=== PATIENT | female | born 1985 | race Caucasian/White ===

== ENCOUNTER → 2021-12-21 | Outpatient (CLI) | payer OTHER, SELFPAY ==
[2021-12-21 10:03] LABS: Absolute Neutrophil Count 7.5 X10^3/uL (2.0-7.7); Basophil# 0.04 X10^3/uL; Basophil% 0.4 % (0-1); Eosinophil# 0.17 X10^3/uL; Eosinophils% 1.7 % (0-5); Hematocrit 36.6 % (37-47); Hemoglobin 11.4 g/dL (12.0-15.0); Lymphocyte % 18.8 % (19-41); Mean Corp Hgb Conc 31.1 g/dL (32-36); Mean Corpuscular Hgb 26.1 pg (27.0-32.0); Mean Corpuscular Volume 83.9 fL (81-99); Mean Platelet Vol. 10.5 fl (6.2-12.0); Monocyte# 0.44 X10^3/uL; Monocyte% 4.3 % (0-10); NRBC Flagged by Analyzer 0 % (0-5); Neutrophil # 7.53 X10^3/uL (2.7-7.7); Neutrophil % 74.4 % (47-70); Platelet Count 290 K/mm3 (150-450); RBC Distribution Width CV 14.7 % (11.6-14.6); RBC Distribution Width SD 45.2 fl (35.1-43.9); Red Blood Count 4.36 M/mm3 (4.2-5.4); White Blood Count 10.1 K/mm3 (4.4-11.0)
[2021-12-21 10:23] LABS: Glucose Challenge Gest 1H 50g 135 mg/dL (70-140)
[2021-12-21 11:06] LABS: HIV - WCH Non-Reactive (Nonreactive); Hepatitis B Surface Antigen Non-Reactive (Nonreactive); Hepatitis C Antibody Non-Reactive (Nonreactive); Rubella IgG Reactive (Nonreactive); Syphilis Antibodies Non-reactive
== END | disposition home or self-care (01) ==
LOC: PAVLAB 09:07
PROVIDERS: Obstetrics & Gynecology; Referring Provider Obstetrics & Gynecology; Visit Provider Obstetrics & Gynecology
DX: Z34.90 Encounter for supervision of normal pregnancy, unspecified, unspecified trimester (principal)
CPT/HCPCS: 36415; 82950; 85025; 86703; 86762; 86780; 86803; 86850; 86900; 86901; 87340

== ENCOUNTER → 2021-12-21 | Outpatient (CLI) | payer OTHER, SELFPAY ==
[2021-12-24 00:07] LABS: Chlamydia By Nucleic Acid AMP Negative (Negative)
[2021-12-24 08:38] LABS: Gonococcus By Nucleic Acid AMP Negative (Negative)
[2021-12-28 15:33] LABS: HPV APTIMA, High Risk Negative (Negative)
== END | disposition home or self-care (01) ==
LOC: LABSPEC 16:07
PROVIDERS: Referring Provider Obstetrics & Gynecology; Visit Provider Obstetrics & Gynecology
DX: Z34.90 Encounter for supervision of normal pregnancy, unspecified, unspecified trimester (principal)
CPT/HCPCS: 87086; 87088; 87186; 87491; 87591; 87624; 88175; G0145

== ENCOUNTER → 2021-12-30 | Outpatient (CLI) | payer OTHER, SELFPAY ==
[2021-12-30 13:09] LABS: Anion Gap 5 (5-15); BUN 8 mg/dL (7-18); BUN/Creat Ratio 12.3 RATIO (10-20); Calcium,Total 9.1 mg/dL (8.5-10.1); Chloride 106 mmol/L (98-107); Creatinine, Serum 0.65 mg/dL (0.55-1.02); EST Glomerular Filtration Rate 110 mL/min (>60); Est Glom Filt Rate - Afr Amer 133 mL/min (>60); Glucose 101 mg/dL (74-106); Magnesium 1.7 mg/dL (1.6-2.6); Potassium 3.7 mmol/L (3.5-5.1); Sodium Level 138 mmol/L (136-145); Thyroid Stim Hormone (TSH) 1.64 uIU/mL (0.358-3.74)
== END | disposition home or self-care (01) ==
LOC: LAB 11:22
PROVIDERS: PCP Nurse Practitioner Family; Referring Provider Internal Medicine Cardiovascular Disease; Visit Provider Internal Medicine Cardiovascular Disease
DX: I10 Essential (primary) hypertension (principal); R00.0 Tachycardia, unspecified; R01.1 Cardiac murmur, unspecified
CPT/HCPCS: 36415; 80048; 83735; 84443

== ENCOUNTER → 2022-01-12 | Outpatient (CLI) | payer OTHER, SELFPAY | END | disposition home or self-care (01) | PROVIDERS: PCP Nurse Practitioner Family; Referring Provider Internal Medicine Cardiovascular Disease; Visit Provider Internal Medicine Cardiovascular Disease | DX: I10 Essential (primary) hypertension (principal); R00.0 Tachycardia, unspecified; R01.1 Cardiac murmur, unspecified | CPT/HCPCS: 93225; 93226 ==

== ENCOUNTER 2022-01-18 15:08 | Emergency (ER) | payer OTHER, SELFPAY ==
[2022-01-18 15:09] VITALS: BP 215/106; PULSE 93; RESP 16; TEMP 36.6; O2SAT 99; BMI 41.0
--- NOTE | 2022-01-18 15:22 | EKG12_ITS ---
Test Reason : BLOOD PRESSURE Blood Pressure : / mmHG Vent. Rate : 069 BPM Atrial Rate : 069 BPM P-R Int : 160 ms QRS Dur : 078 ms QT Int : 384 ms P-R-T Axes : 027 -16 049 degrees QTc Int : 411 ms Normal sinus rhythm Low voltage QRS Septal infarct , age undetermined Inferior infarct , age undetermined Abnormal ECG Confirmed by ANA ZAMORA, LOUIS ([id number]), website/blog editor ROSIE COOK ([id number]) on 01/19/2022 9:02:53 AM Referred By: JUSTINA Confirmed By:LOUIS PEREZ MD
--- NOTE | 2022-01-18 15:23 | EX.ED.DYSGE1 ---
HPI History of Present Illness Chief Complaint: Hypertension Informant: patient Narrative Narrative: 36-year-old female at 12 weeks gestation presenting to the emergency room with hypertension. Patient has a history of hypertension and recently saw HYDRAULIC AUTO JACK MECHANIC who referred her to cardiology (Dr. Ag) for hypertension and heart murmur. Cardiology assessed her and asked for OB's recommendations for medications. She followed up with her HYDRAULIC AUTO JACK MECHANIC today and was noted that in the office she was 175/123. Due to her insurance she cannot see highway maintainer yet but they are working on this aspect of her care. She has a history of morbid obesity. She notes a sinus headache but that is unchanged. She denies any vision changes. She denies any urinary symptoms no seizures. She notes no change in her chronic lower extremity swelling. She notes that she has nasal congestion due to his allergies [facility] Medical History UTI (urinary tract infection) during Home Medications prenat.vits,edmund,[id number] 1 tab PO DAILY 12/08/21 [History Last Taken Unknown] labetalol 200 mg PO BID #60 tab 01/18/22 [Rx Last Taken Unknown] Allergy/AdvReac Type Severity Reaction Status Date / Time No Known Allergies Allergy Verified 01/18/22 15:11 Family History Mother Cancer possibly ovarian Social History adopted: No household members: spouse number of children: 1 current occupational status: employed current occupation: [employer] pets and animals: Yes (avoid litter box) pets and animals: cat(s) and dog(s) Smoking Status: Never smoker alcohol intake: never substance use type: does not use caffeine: Yes do you feel safe at home: Yes additional social history: Spouse: Jim MERCHANT SHONDA ED Constitutional Constitutional ED: Denies chills, fever(s) or weight loss Eyes Eyes: Denies blurry vision, change in vision or diplopia ENT ENT ED: Reports rhinorrhea; Denies ear pain or sore throat Cardiovascular Cardiovascular: Denies chest pain, orthopnea, palpitations or racing heartbeat Respiratory/Chest Respiratory/Chest: Denies cough, dyspnea or orthopnea Gastrointestinal Gastrointestinal: Denies abdominal pain, diarrhea, nausea or vomiting Genitourinary Genitourinary ED: Denies dysuria, hematuria or urinary frequency Musculoskeletal Musculoskeletal: Denies arthralgias or myalgias Integumentary Denies abscess or rash Neurologic Neurologic: Reports headache(s); Denies weakness Psychiatric Psychiatric: Denies anxiety, depression, suicidal ideation or suicidal thoughts Endocrine Endocrinology: Denies polydipsia, polyphagia or polyuria Allergic/Immunologic Allergic/Immunologic ED: Denies mouth swelling, tongue swelling or urticaria EXAM Physical Exam Const Vital Signs: 01/18/22 15:09 01/18/22 15:19 01/18/22 15:32 Temperature 98 F Temperature Source Temporal Pulse Rate 93 72 Respiratory Rate 16 18 Respiratory Effort Normal Respiratory Pattern Normal Blood Pressure 215/106 H 200/110 H Blood Pressure Mean 142 140 Pulse Ox 99 96 Oxygen Delivery Method Room Air Room Air 01/18/22 15:33 01/18/22 15:55 Temperature Temperature Source Pulse Rate 76 66 Respiratory Rate 18 16 Respiratory Effort Respiratory Pattern Blood Pressure 200/110 H 148/75 H Blood Pressure Mean 140 99 Pulse Ox 98 98 Oxygen Delivery Method Room Air Room Air Positive well nourished, well developed and obese General Appearance ED: well developed Nutritional Appearance: obese HEENT Reports normocephalic, head/scalp atraumatic, TM's clear and moist mucous membranes Negative for trauma Tympanic Membrane ED: Yes TM's clear Eyes PERRL and EOMs intact bilaterally Neck no lymphadenopathy, supple and no JVD Resp normal respiratory effort and clear to auscultation bilaterally Cardio regular rate, regular rhythm and no murmurs GI normal to inspection, nondistended, normoactive bowel sounds and non-tender Palpation: soft Back/Spine no CVA tenderness and normal ROM Extremity Extremity Narrative: Bilateral nonpitting edema of the lower extremity General Extremety ED: Negative for tenderness Neuro oriented x3 and CN's II-XII intact bilaterally Sensorium / Orientation: alert Motor Exam: strength 5/5 throughout Psych mental status grossly normal Mood & Affect: Negative for depressed or tearful Skin no rashes or lesions noted and no wounds MDM MDM MDM Narrative Medical decision making narrative: Basic blood work obtained negative. Patient received a dose of labetalol and nifedipine. Blood pressure has come down 148/75 she does not feel any symptoms of the lower pressure. I spoke with cardiology Dr. Lau who recommends the patient begin labetalol 200 mg twice a day. Patient is comfortable with that plan Lab Data Attestation: I reviewed the patient's lab results. Labs: Laboratory Results - last 24 hr 01/18/22 01/18/22 15:31 15:31 WBC 7.5 RBC 4.70 Hgb 12.5 Hct 38.8 MCV 82.6 MCH 26.6 L MCHC 32.2 RDW Std Deviation 46.1 H RDW Coeff of Nacho 15.2 H Plt Count 301 MPV 10.7 Immature Gran % (Auto) 0.300 Neut % (Auto) 63.5 Lymph % (Auto) 20.9 [place] % (Auto) 13.0 H Eos % (Auto) 2.0 Baso % (Auto) 0.3 Absolute Neuts (auto) 4.7 Absolute Lymphs (auto) 1.56 Nucleated RBC % 0 Sodium 138 Potassium 4.0 Chloride 107 Carbon Dioxide 23.0 Anion Gap 8 BUN 8 Creatinine 0.64 Estim Creat Clear Calc 105.95 Est GFR (MDRD) Af Amer 137 Est GFR (MDRD) Non-Af 113 BUN/Creatinine Ratio 12.6 Glucose 93 Calcium 9.2 Magnesium 2.0 Total Bilirubin 0.20 AST 19 ALT 31 Alkaline Phosphatase 58 Troponin I High Sens < 3 L Total Protein 7.2 Albumin 2.8 L Globulin 4.4 H Albumin/Globulin Ratio 0.6 L EKG Initial EKG: Attestation: I personally reviewed and interpreted this EKG as follows: Comments: Normal sinus rhythm with a ventricular rate of 69 bpm. Discharge Plan Triage Chief Complaint: Hypertension ED Provider: Abhishek Butler Dx/Rx/DC Orders Clinical Impression: Asymptomatic hypertensive urgency Instructions: ED High Blood Pressure Hypertension Prescriptions: New labetalol 200 mg tablet 200 mg PO BID Qty: 60 RF: 0 No Action prenat.vits,edmund,[id number] Tablet 1 tab PO DAILY RF: 0 Primary Care Provider: Lolita Laguna NP Referrals: Radha Hill DO [STAFF PHYSICIAN] - Keep Stephan appointment Rudy Ag MD [STAFF PHYSICIAN] - Keep Stephan appointment Lolita Laguna NP, CALENDER OPERATOR-C [Primary Care Provider] - Disposition Disposition: Home, Self Care
[2022-01-18 15:32] VITALS: BP 200/110; PULSE 72; RESP 18; O2SAT 96
[2022-01-18 15:33] VITALS: BP 200/110; PULSE 76; RESP 18; O2SAT 98
[2022-01-18 15:44] LABS: Absolute Lymphocyte Count 1.56 X10^3/uL (0.83-4.51); Absolute Neutrophil Count 4.7 X10^3/uL (2.0-7.7); Basophil# 0.02 X10^3/uL; Basophil% 0.3 % (0-1); Eosinophil# 0.15 X10^3/uL; Hematocrit 38.8 % (37-47); Hemoglobin 12.5 g/dL (12.0-15.0); Lymphocyte # 1.56 X10^3/ul (0.83-4.51); Lymphocyte % 20.9 % (19-41); Mean Corp Hgb Conc 32.2 g/dL (32-36); Mean Corpuscular Hgb 26.6 pg (27.0-32.0); Mean Corpuscular Volume 82.6 fL (81-99); Mean Platelet Vol. 10.7 fl (6.2-12.0); Monocyte# 0.97 X10^3/uL; NRBC Flagged by Analyzer 0 % (0-5); Neutrophil # 4.74 X10^3/uL (2.7-7.7); Neutrophil % 63.5 % (47-70); Platelet Count 301 K/mm3 (150-450); RBC Distribution Width CV 15.2 % (11.6-14.6); RBC Distribution Width SD 46.1 fl (35.1-43.9); White Blood Count 7.5 K/mm3 (4.4-11.0)
[2022-01-18] MEDS: Labetalol (Prefilled) 20 MG/4 ML 10 MG IV (15:49)
[2022-01-18] MEDS: NIFEdipine 10 MG Capsule 20 MG PO (15:51)
[2022-01-18 15:55] VITALS: BP 148/75; PULSE 66; RESP 16; O2SAT 98
[2022-01-18 16:02] LABS: ALB/GLOB Ratio 0.6 RATIO (0.9-2.4); AST(SGOT) 19 U/L (15-37); Alanine Aminotransfer ALT/SGPT 31 U/L (13-56); Albumin, Serum 2.8 g/dL (3.2-5.0); Alkaline Phosphatase 58 U/L (45-117); Anion Gap 8 (5-15); BUN 8 mg/dL (7-18); BUN/Creat Ratio 12.6 RATIO (10-20); Calcium,Total 9.2 mg/dL (8.5-10.1); Chloride 107 mmol/L (98-107); Creatinine, Serum 0.64 mg/dL (0.55-1.02); EST Glomerular Filtration Rate 113 mL/min (>60); Est Glom Filt Rate - Afr Amer 137 mL/min (>60); Estimated Creatinine Clearance 105.95 ml/min; Globulin 4.4 g/dL (2.2-4.2); Glucose 93 mg/dL (74-106); Protein, Total 7.2 g/dL (6.4-8.2); Sodium Level 138 mmol/L (136-145); Troponin-I HS < 3 pg/mL (3.0-54.0)
[2022-01-18 16:27] LABS: Mucous, Urine 0 SEEN /hpf (<or=2+)
[2022-01-18 16:33] LABS: Color, Urine Yellow (Yellow); Glucose, Dipstick Normal (Normal); Ketone-Dipstick Negative (Negative); Leukocyte Esterase-Dipstick 500 /ul (Negative); Nitrite-Dipstick Positive (Negative); Occult Blood-Urine 250 /ul (Negative); Protein-Dipstick 15 mg/dl (Negative); Urine Bilirubin Dipstick Negative (Negative); Urine Clarity Sl. Cloudy (Clear); Urine Urobilinogen Normal (Normal); Urine pH 6.5 (5.0 - 8.0)
[2022-01-18 16:35] VITALS: BP 150/79; PULSE 82; RESP 16; O2SAT 98
[2022-01-18 16:45] LABS: Bacteria 3+ /hpf (None Seen); Red Blood Cells-Urine 10-25 SEEN /hpf (0-5); Squamous Epithelial Cells - UA 5-10 SEEN /hpf (5-10)
[2022-01-18 16:47] LABS: White Blood Cells 25-50 SEEN /hpf (0-5)
== END 2022-01-18 16:35 | disposition home or self-care (01) ==
PROVIDERS: Emergency Provider Emergency Medicine; PCP Nurse Practitioner Family; Visit Provider Emergency Medicine
DX: I16.0 Hypertensive urgency (principal); O99.211 Obesity complicating pregnancy, first trimester; O10.911 Unspecified pre-existing hypertension complicating pregnancy, first trimester; Z3A.12 12 weeks gestation of pregnancy
CPT/HCPCS: 80053; 81001; 83735; 84484; 85025; 93005; 96374; 99284; A4216

== ENCOUNTER 2022-01-20 06:41 | Day surgery (SDC) | payer OTHER, SELFPAY ==
[2022-01-20] VITALS (12 sets, daily range): BP systolic 118–148; BP diastolic 54–80; PULSE 51–76; RESP 16–20; TEMP 36.2–36.8; O2SAT 97–100; BMI 48.0
--- NOTE | 2022-01-20 | FET_PTH ---
PATIENT: CRUZ ORONA [place] [facility] [id number] AGE/SX: 36/F ROOM: RE01/20/[address]: Dr. Jerrica Coronel MD : 1985 BED: DIS: 01/20/2022 SPEC #: [id number] RECD: 01/20/22 13:09 STATUS: BOB VICKIE #: [id number] XIMENA: 01/20/22 00:[address]: Jerrica Coronel DEPT: SURGICAL PATHOLOGY RECD BY: Ana Lilia Miranda ENTERED: 01/20/22 13:09 SP TYPE: FETUS OTHR DR: HARSH Ashby Tissues: Fetus, NOS Procedures: Surgery Specimen Level HEADER OPERATION: None PRE-OP DIAGNOSIS: Miscarriage TISSUE SUBMITTED: Fetus (about 13 weeks) MICROSCOPIC DIAGNOSIS Fetus vaginally passed at home (approximately 13 weeks): Male fetus with no anatomic or histologic abnormalities. AM:gus 01/21/2022 MICROSCOPIC DESCRIPTION Slides are reviewed. GROSS DESCRIPTION Received in fixative is one container labeled with the patient's name and designated fetus. The specimen consists of a male fetus weighing 29.8 gm. The rump to head measures 8 cm. The head to heel measures 11.2 cm. The attached umbilical cord measures 7 x 0.3 cm. The head circumference is 7.2 cm. All four extremities are normal in appearance. The skin show sloughing. The abdominal and thoracic organs appear to be normally situated. Cable Swager sections are submitted as follows: 1??lung and heart, 2 - liver and spleen, 3 - kidneys and bowel, 4 - brain. / AM:gus 01/20/2022 TC:5 CPT: 88750
--- NOTE | 2022-01-20 07:05 | US_ITS ---
STUDY: FIRST TRIMESTER OBSTETRICAL ULTRASOUND REASON FOR EXAM: Female, 36 years old Miscarriage at 12 weeks - patient passed fetus last night TECHNIQUE: Transabdominal scanning only. TECHNICAL QUALITY: Adequate. PRIOR ULTRASOUND: None. FINDINGS: The uterus is enlarged measuring 17.0 x 9.0 x 8.0 cm in diameter. There is no demonstrated uterine fibroid. Endometrial stripe is thickened measuring up to 3 cm in thickness. The endometrial stripe is inhomogeneous, consistent with clot. No intrauterine gestational sac is seen. A few small foci of Doppler flow are seen within the endometrium. Neither ovary is visualized. No adnexal mass or free pelvic fluid identified. There is no fluid in the cul de sac. US/Init OB < 14Wks US IMPRESSION: No intrauterine gestational sac is present, consistent with the clinical history of spontaneous . Thickened heterogeneous endometrium; a few small foci of Doppler flow noted within the thickened endometrium, suggesting minimal retained products of conception. Electronically Signed: Ventura Peña MD at 7:53 EDT ,
--- NOTE | 2022-01-20 07:08 | EDS_ITS ---
HPI HPI - Female History of Present Illness Chief Complaint: Vag Bld, Preg Informant: patient Narrative Narrative: This patient is G4 or G5, P1 at about 13 weeks gestation. She was seen yesterday in the office. She states she had an ultrasound that showed an abruption of the placenta. This morning she had passage of a fair amount of blood with a lot of tissue. She states the bleeding has significantly decreased. She still having intermittent cramping. She is not lightheaded or dizzy. Her 1 delivery was vaginal. She is not on any anticoagulation. She does take and labetalol for chronic high blood pressure. I looked back on her chart and she has blood type a positive from earlier this month. Nothing makes symptoms better or worse. She was feeling fine prior to this. PFSH PFS Medical History UTI (urinary tract infection) during Home Medications prenat.vits,edmund,[id number] 1 tab PO DAILY 12/08/21 [History Last Taken Unknown] labetalol 200 mg PO BID #60 tab 01/18/22 [Rx Last Taken Unknown] Allergy/AdvReac Type Severity Reaction Status Date / Time No Known Allergies Allergy Verified 01/20/22 06:42 Family History Mother Cancer possibly ovarian Social History adopted: No household members: spouse number of children: 1 current occupational status: employed current occupation: [employer] pets and animals: Yes (avoid litter box) pets and animals: cat(s) and dog(s) Smoking Status: Never smoker alcohol intake: never substance use type: does not use caffeine: Yes do you feel safe at home: Yes additional social history: Spouse: Jim MERCHANT ED Constitutional Constitutional ED: Denies chills or fever(s) ENT ENT ED: Denies rhinorrhea Cardiovascular Cardiovascular: Denies chest pain Respiratory/Chest Respiratory/Chest: Denies cough or dyspnea Gastrointestinal Gastrointestinal: Denies diarrhea, nausea or vomiting Genitourinary Genitourinary ED: Reports other Details: See history of present illness. Musculoskeletal Musculoskeletal: Denies myalgias Integumentary Denies rash Neurologic Neurologic: Denies headache(s) Psychiatric Psychiatric: Denies depression Endocrine Endocrinology: Denies polydipsia or polyuria Hematologic/Lymphatic Hematologic/Lymphatic: Denies easy bleeding or easy bruising Allergic/Immunologic Allergic/Immunologic ED: Denies urticaria EXAM Physical Exam Const Vital Signs: 01/20/22 06:43 01/20/22 09:55 01/20/22 10:21 Temperature 97.5 F L Temperature Source Temporal Pulse Rate 68 59 L Respiratory Rate 20 H 16 Blood Pressure 139/67 H 122/67 H 148/75 H Blood Pressure Mean 91 85 99 Pulse Ox 98 98 Oxygen Delivery Method Room Air Room Air Positive well nourished General Appearance ED: Negative for pallor HEENT Reports moist mucous membranes Negative for trauma Eyes General Eye ED: Negative for pale conjunctiva Chest Wall inspection of chest normal Resp normal respiratory effort and clear to auscultation bilaterally Cardio regular rate and regular rhythm Rate: other Other Details: Heart rate is only about 60-65. GI normal to inspection, nondistended, normoactive bowel sounds, soft to palpation and non-tender no CVA tenderness Back/Spine no CVA tenderness Neuro Sensorium / Orientation: alert Psych mental status grossly normal Skin no rashes or lesions noted Skin Narrative: No diaphoresis. General Skin Exam: Negative for pallor MDM MDM MDM Narrative Medical decision making narrative: Patient and not told me but nursing staff did. Patient actually brought in a very small fetus that passed. This was clearly fetus by structure. Patient's labs are overall unremarkable. We did order ultrasound. We are having trouble getting these images. At 10:00 we again asked to see if we can get this read. It ends up that the images had been read at 753 but we did not have access to them. They faxed over the results at the same time we had them appear on the computer. This does show some retained products. Patient had another episode of bleeding here. But her blood pressure is good at 120s. I discussed case with Dr. Coronel. Plan wi ll be go to the OR for D&C. Lab Data Attestation: I reviewed the patient's lab results. Labs: Laboratory Results - last 24 hr 01/20/22 01/20/22 06:50 06:50 WBC 12.0 H RBC 4.58 Hgb 12.1 Hct 38.1 MCV 83.2 MCH 26.4 L MCHC 31.8 L RDW Std Deviation 46.4 H RDW Coeff of Nacho 15.3 H Plt Count 319 MPV 10.6 Immature Gran % (Auto) 0.300 Neut % (Auto) 72.1 H Lymph % (Auto) 18.8 L [place] % (Auto) 5.8 Eos % (Auto) 2.7 Baso % (Auto) 0.3 Absolute Neuts (auto) 8.7 H Absolute Lymphs (auto) 2.26 Nucleated RBC % 0 Sodium 138 Potassium 3.9 Chloride 107 Carbon Dioxide 22.0 Anion Gap 9 BUN 10 Creatinine 0.62 Estim Creat Clear Calc 109.36 Est GFR (MDRD) Af Amer 140 Est GFR (MDRD) Non-Af 115 BUN/Creatinine Ratio 16.0 Glucose 107 H Calcium 9.0 Radiography Diagnostic Testing: Clinical Impression(s) from Imaging Studies Obstetrics Ultrasound 01/20/22 07:05 IMPRESSION: No intrauterine gestational sac is present, consistent with the clinical history of spontaneous . Thickened heterogeneous endometrium; a few small foci of Doppler flow noted within the thickened endometrium, suggesting minimal retained products of conception. Electronically Signed: Ventura Peña MD at 7:53 EDT , Discharge Plan Triage Chief Complaint: Vag Bld, Preg ED Provider: Warren Lowe Dx/Rx/DC Orders Clinical Impression: Incomplete miscarriage, Vaginal bleeding Prescriptions: No Action prenat.vits,edmund,[id number] Tablet 1 tab PO DAILY RF: 0 labetalol 200 mg tablet 200 mg PO BID Qty: 60 RF: 0 Primary Care Provider: Lolita Laguna NP Referrals: Lolita Laguna BIKE MECHANIC, BIKE MECHANIC-C [Primary Care Provider] - Disposition Disposition: Acute Care Hospital [facility]
[2022-01-20 07:15] LABS: Absolute Lymphocyte Count 2.26 X10^3/uL (0.83-4.51); Absolute Neutrophil Count 8.7 X10^3/uL (2.0-7.7); Basophil# 0.03 X10^3/uL; Basophil% 0.3 % (0-1); Eosinophil# 0.32 X10^3/uL; Eosinophils% 2.7 % (0-5); Hematocrit 38.1 % (37-47); Hemoglobin 12.1 g/dL (12.0-15.0); Lymphocyte # 2.26 X10^3/ul (0.83-4.51); Lymphocyte % 18.8 % (19-41); Mean Corp Hgb Conc 31.8 g/dL (32-36); Mean Corpuscular Hgb 26.4 pg (27.0-32.0); Mean Corpuscular Volume 83.2 fL (81-99); Mean Platelet Vol. 10.6 fl (6.2-12.0); Monocyte# 0.69 X10^3/uL; Monocyte% 5.8 % (0-10); NRBC Flagged by Analyzer 0 % (0-5); Neutrophil # 8.65 X10^3/uL (2.7-7.7); Neutrophil % 72.1 % (47-70); Platelet Count 319 K/mm3 (150-450); RBC Distribution Width CV 15.3 % (11.6-14.6); RBC Distribution Width SD 46.4 fl (35.1-43.9); Red Blood Count 4.58 M/mm3 (4.2-5.4)
[2022-01-20 07:28] LABS: Anion Gap 9 (5-15); BUN 10 mg/dL (7-18); Chloride 107 mmol/L (98-107); Creatinine, Serum 0.62 mg/dL (0.55-1.02); EST Glomerular Filtration Rate 115 mL/min (>60); Est Glom Filt Rate - Afr Amer 140 mL/min (>60); Estimated Creatinine Clearance 109.36 ml/min; Glucose 107 mg/dL (74-106); Potassium 3.9 mmol/L (3.5-5.1); Sodium Level 138 mmol/L (136-145)
--- NOTE | 2022-01-20 09:42 | ED.RN ---
PT UP TO BATHROOM. PASSING LARGE CLOTS LEAKING TO FLOOR. BED SATURATED WITH BLOOD.
[2022-01-20] MEDS: 0.9% Normal Saline 1,000 ML 15 ML IV (12:04)
[2022-01-20] MEDS: Lidocaine 1% (20 ml mdv) 20 ML Vial (12:28)
--- NOTE | 2022-01-20 12:54 | PCM.HP.STD ---
HPI - General HPI Narrative CRUZ ORONA, is a 36 F who presentswith acute vagianl bleeding and passed tissue at home this morning, and upon ultrasound evaluation has retained placental tissue suspected on ultrasound, still bleeding. [facility] Medical History UTI (urinary tract infection) during Home Medications prenat.vits,edmund,[id number] 1 tab PO DAILY 12/08/21 [History Last Taken 01/19/22] labetalol 200 mg PO BID #60 tab 01/18/22 [Rx Last Taken 01/19/22] Allergy/AdvReac Type Severity Reaction Status Date / Time No Known Allergies Allergy Verified 01/20/22 12:01 Family History Mother Cancer possibly ovarian Social History adopted: No household members: spouse number of children: 1 current occupational status: employed current occupation: [employer] pets and animals: Yes (avoid litter box) pets and animals: cat(s) and dog(s) Smoking Status: Never smoker alcohol intake: never substance use type: does not use caffeine: Yes do you feel safe at home: Yes additional social history: Spouse: Jim MECRHANT Review of Systems ROS Unobtainable: due to mental status and other Constitutional Constitutional: Reports systems reviewed and no addt'l complaints, except as documented; Denies as per HPI, change in weight, fatigue, fever(s), malaise, weakness or other Eyes Eyes: Reports systems reviewed and no addt'l complaints, except as documented; Denies as per HPI, change in vision or other ENT HEENT: Reports as per HPI and dizziness; Denies dry mouth, headache(s), loss taste/smell, nasal congestion, nasal discharge, neck pain, sore throat or other Respiratory/Chest Respiratory/Chest: Reports systems reviewed and no addt'l complaints, except as documented Gastrointestinal Gastrointestinal: Reports systems reviewed and no addt'l complaints, except as documented and nausea; Denies vomiting Musculoskeletal Musculoskeletal: Reports systems reviewed and no addt'l complaints, except as documented; Denies back pain or joint pain Neurologic Neurologic: Reports systems reviewed and no addt'l complaints, except as documented Psychiatric Psychiatric: Reports systems reviewed and no addt'l complaints, except as documented Endocrine Endocrinology: Reports systems reviewed and no addt'l complaints, except as documented Hematologic/Lymphatic Hematologic/Lymphatic: Reports systems reviewed and no addt'l complaints, except as documented Vital Signs Vital Signs Vital Signs: 01/20/22 06:43 01/20/22 09:55 01/20/22 10:21 Temperature 97.5 F L Temperature Source Temporal Pulse Rate 68 59 L Respiratory Rate 20 H 16 Respiratory Pattern Blood Pressure 139/67 H 122/67 H 148/75 H Blood Pressure Mean 91 85 99 Blood Pressure Source Blood Pressure Position Blood Pressure Location Pulse Ox 98 98 Oxygen Delivery Method Room Air Room Air 01/20/22 11:37 01/20/22 11:46 01/20/22 11:55 Temperature 98.0 F 98 F 98.2 F Temperature Source Oral Oral Temporal Pulse Rate 66 66 57 L Respiratory Rate 17 17 16 Respiratory Pattern Normal Blood Pressure 144/76 H 144/76 H 143/72 H Blood Pressure Mean 98 98 95 Blood Pressure Source Monitor Monitor Blood Pressure Position Semi-Fowlers Semi-Fowlers Blood Pressure Location Right Arm Right Forearm Pulse Ox 98 98 99 Oxygen Delivery Method Room Air Room Air Room Air Weight Weight: 279 lb 15.793 oz Body Mass Index (BMI) 48.0 Physical Exam Const alert, oriented x3 and no apparent distress HEENT normocephalic Head and Scalp: atraumatic Eyes EOMs intact bilaterally and conjunctivae normal Neck full ROM, no lymphadenopathy, supple and thyroid normal General: trachea midline Lymph Lymphatic: no lymphadenopathy noted Resp normal respiratory effort, no retractions, no use of accessory muscles and clear to auscultation bilaterally Cardio regular rhythm GI normal to inspection, nondistended, normoactive bowel sounds, soft to palpation, non-distended and no masses Inspection: Negative for abdominal distention Back/Spine no CVA tenderness Extremity normal to inspection Skin no rashes or lesions noted Neuro moves all extremities and deep tendon reflexes 2+ bilaterally Motor Exam: clonus absent Psych mental status grossly normal Results Lab / Micro Data Result Diagrams: 01/20/22 06:50 01/20/22 06:50 Labs: Laboratory Results - last 24 hr 01/20/22 06:50: WBC 12.0 H, RBC 4.58, Hgb 12.1, Hct 38.1, MCV 83.2, MCH 26.4 L, MCHC 31.8 L, RDW Std Deviation 46.4 H, RDW Coeff of Nacho 15.3 H, Plt Count 319, MPV 10.6, Immature Gran % (Auto) 0.300, Neut % (Auto) 72.1 H, Lymph % (Auto) 18.8 L, [place] % (Auto) 5.8, Eos % (Auto) 2.7, Baso % (Auto) 0.3, Absolute Neuts (auto) 8.7 H, Absolute Lymphs (auto) 2.26, Nucleated RBC % 0 01/20/22 06:50: Sodium 138, Potassium 3.9, Chloride 107, Carbon Dioxide 22.0, Anion Gap 9, BUN 10, Creatinine 0.62, Estim Creat Clear Calc 109.36, Est GFR (MDRD) Af Amer 140, Est GFR (MDRD) Non-Af 115, BUN/Creatinine Ratio 16.0, Glucose 107 H, Calcium 9.0 Radiology Impression Obstetrics Ultrasound 01/20/22 07:05 IMPRESSION: No intrauterine gestational sac is present, consistent with the clinical history of spontaneous . Thickened heterogeneous endometrium; a few small foci of Doppler flow noted within the thickened endometrium, suggesting minimal retained products of conception. Electronically Signed: Ventura Peña MD at 7:53 EDT , Assessment & Plan Assessment/Plan (1) Chronic hypertension: (2) Incomplete miscarriage: PLAN: proceed with suction d and c After discussing the patient's diagnosis and treatment plan options, patient wishes to proceed with surgical management. I have discussed with the patient the risks, benefits, and alternatives of the procedure which include but are not limited to risks of anesthesia, bleeding, infection, possible damage to bowel, bladder, or surrounding vasculature which could lead to additional surgery to evaluate any complications. Patient agrees to procedure and wishes to proceed. ACOG/uptodate references given for additional information regarding procedure.
--- NOTE | 2022-01-20 12:55 | PCM.OPRPT ---
Problems Associated Problem List Diagnoses (1) Incomplete miscarriage: (2) Vaginal bleeding: (3) Chronic hypertension: (4) : Report of Operation Date of Procedure: 01/20/22 Pre-Operative Diagnosis: see problem list Post-Operative Diagnosis: same Surgery/Procedure Performed:: Suction dilation and curettage Description of Surgical Findings:: tissue passed, retained placental tissue suspected no FHT seen no pole Surgeon: Jerrica Coronel gear lapping machine operator: None Type of Anesthesia: Local MAC Special Medications: cytotec Specimen's removed: POC Drains: none Estimated Blood Loss (mL): 100 Fluids Replaced: crystalloid Description of Procedure: Patient was taken to the operating room and placed under MAC local anesthesia. She was prepped and draped in the normal sterile fashion the dorsal lithotomy position. Bladder was drained of clear urine and anterior lip of the cervix was grasped and the uterus sounded to 12cm. Cervix was progressively dilated to allow passage of a 12mm suction curette. Progressive passes were made removing the retained products of conception without complication. Sharp curettage confirmed complete removal of the retained products. All instruments were removed from the vagina and excellent hemostasis was noted and the patient was taken to recovery in stable condition. Grafts/Implants Used: none Complications none Admit VTE Documentation VTE Present on Admission: No VTE Mechan Device Prophylaxis: SCD's Procedures Urinary/Genital [id number]: 03644 Trmt of incomplete Ab, any TM
--- NOTE | 2022-01-20 13:12 | DCINST_ITS ---
Discharge Instructions Procedure D&C Diet Discharge Diet: No restrictions Activity Discharge Activity: Return to Normal Activity, May Shower and May Take a Tub Bath (after 1 week) May resume sexual activity in: 1-2 weeks Weight Bearing Status: Weight bearing as tolerated Lifting Restrictions: none Dressing / Incision Call your doctor if you observe: Fever of 101 or Higher, Using more than 1 pad per hour, Shortness of breath and Uncontrolled pain Follow Up Care Please Follow Up With: Jerrica Coronel MD When: Call [phone] to schedule appointment. Test Results: Test results from this visit will be discussed in further detail at your follow-up appointment, if applicable. Discharge Plan Admission Attending Provider: Jerrica Coronel Primary Care Provider: Lolita Laguna NP Discharge Orders/Prescriptions Prescriptions: No Action prenat.vits,edmund,[id number] Tablet 1 tab PO DAILY RF: 0 labetalol 200 mg tablet 200 mg PO BID Qty: 60 RF: 0 Referrals / Follow Up: Lolita Laguna NP, [employer]APH[employer] SOAPING MACHINE OPERATOR-C [Primary Care Provider] - Disposition Disposition (needs filled in before D/C Order can be placed): Home, Self Care
[2022-01-20] MEDS: Lubricating Jelly 60 GM Tube 30 GM (13:13)
[2022-01-20] MEDS: miSOPROStol 200 MCG Tablet ×2 (13:19)
--- NOTE | 2022-01-20 13:40 | POC_PTH ---
PATIENT: CRUZ ORONA LOC: [facility] [place][id number] AGE/SX: 36/F ROOM: RE01/20/[address]: Dr. Jerrica Coronel MD : [id number] BED: DIS: 01/20/2022 SPEC #: [id number] RECD: 01/20/22 14:36 STATUS: BOB JOHNSTON #: [id number] XIMENA: 01/20/22 13:[address]: Jerrica Coronel DEPT: SURGICAL PATHOLOGY RECD BY: Ana Lilia Miranda ENTERED: 01/21/22 08:41 SP TYPE: PROD CONC OTHR DR: HARSH Ashby Tissues: Product of conception, NOS Procedures: Surgery Specimen Level IV HEADER OPERATION: Suction dilation and curettage PRE-OP DIAGNOSIS: Incomplete spontaneous TISSUE SUBMITTED: Products of conception MICROSCOPIC DIAGNOSIS Endometrium, curettage: Rare chorionic villi, decidualized stroma and trophoblastic cells consistent with products of conception. AM:gus 01/25/2022 COMMENT Case has been reviewed in consultation with Dr. Bear who concurs with the above diagnosis. IDC:DAVID MICROSCOPIC DESCRIPTION Slides are reviewed. GROSS DESCRIPTION Received in fixative is one container labeled with the patient's name and designated products of conception. The specimen consists of multiple irregular and hemorrhagic fragments of dark terry soft tissue that in aggregate measure 10 x 11 x 1 cm. parts are not grossly recognized. Business Technology Architect portions are submitted in three cassettes. / AM:gus 01/21/2022 More tissue is submitted in five more cassettes, 4-8. / SJ:gus 01/24/2022 TC:5 CPT: 40699
== END 2022-01-20 15:19 | disposition home or self-care (01) ==
LOC: ED 10:59 → SDC 11:37
PROVIDERS: Emergency Provider Emergency Medicine; PCP Nurse Practitioner Family; Visit Provider Obstetrics & Gynecology
PROC: (CPT 59812; principal; 2022-01-20 13:25)
DX: O03.4 Incomplete spontaneous abortion without complication (principal); O09.521 Supervision of elderly multigravida, first trimester; O10.911 Unspecified pre-existing hypertension complicating pregnancy, first trimester; I10 Essential (primary) hypertension
CPT/HCPCS: 59812; 01965; 76801; 80048; 85025; 86850; 86900; 86901; 88305; 88309; 99283; J7040; A4216; J2405

== ENCOUNTER → 2022-01-27 | Outpatient (CLI) | payer OTHER, SELFPAY ==
--- NOTE | 2022-01-27 15:06 | ECHOD_ITS ---
Reason For Study: MURMUR Procedure This was a 2D Doppler, Color Flow transthoracic echocardiogram. The study was technically difficult. Contrast injection was performed. Exam performed in department. Left Ventricle Normal LV size. Left ventricular systolic function is normal. The estimated ejection fraction is 65 %. There is evidence of diastolic dysfunction. No regional wall motion abnormalities noted. Right Ventricle Normal RV size. Normal systolic function. Atria The left atrium is mildly enlarged. Normal right atrium. No doppler evidence for ASD. Mitral Valve There is no mitral annular calcification. Normal mitral valve. Mild (1+) mitral valve insufficiency. Tricuspid Valve Normal tricuspid valve. Mild tricuspid valve insufficiency. Right ventricular systolic pressure estimated to be 36 mmHg. Aortic Valve The aortic valve is not well visualized. Trivial aortic valve insufficiency. Pulmonic Valve The pulmonic valve is not well visualized. Great Vessels Normal sized aortic root. Pericardium/Pleural No pericardial effusion. Medication 22 gauge I.V. with prn adaptor inserted into left arm. Diluted definity 2ml given slow IV push to enhance endocardial definition. Performed a rapid injection of agitated mix of 9 cc saline and 1cc air to assess for atrial septal defect. MMode/2D Measurements & Calculations LVIDd: 5.2 cm IVSd: 1.2 cm Ao root diam: 2.9 cm LVIDs: 3.3 cm LVPWd: 1.4 cm RVDd: 3.4 cm FS: 37.9 % LAV(MOD-sp4): 117.6 ml LVAd ap4: 42.3 cm2 SV(MOD-sp4): 115.7 ml LVLd ap4: 9.0 cm EDV(MOD-sp4): 163.5 ml EDV(sp4-el): 168.0 ml LVAs ap4: 21.8 cm2 LVLs ap4: 7.7 cm ESV(MOD-sp4): 47.9 ml ESV(sp4-el): 52.9 ml EF(MOD-sp4): 70.7 % EF(sp4-el): 68.5 % SV(sp4-el): 115.1 ml LA A4 area: 30.6 cm2 LA dimension(2D): 4.4 cm RA A4 area: 16.9 cm2 Doppler Measurements & Calculations MV E max hernandez: 145.6 cm/sec Lat Peak E' Hernandez: 12.4 cm/sec Med Peak E' Hernandez: 8.3 cm/sec MV A max hernandez: 118.3 cm/sec E/E' lat: 11.8 E/E' med: 17.6 MV E/A: 1.2 Ao V2 max: 174.2 cm/sec LV V1 max: 134.1 cm/sec PA V2 max: 133.9 cm/sec Ao max P.1 mmHg LV V1 max P.2 mmHg TR max hernandez: 287.6 cm/sec TR max P.1 mmHg ECHO/Echo Complete W/ Contrast Interpretation Summary The study was technically difficult. Contrast injection was performed. Left ventricular systolic function is normal. The estimated ejection fraction is 65 %. The left atrium is mildly enlarged. Mild (1+) mitral valve insufficiency. Mild tricuspid valve insufficiency. Trivial aortic valve insufficiency. Right ventricular systolic pressure estimated to be 36 mmHg. There is evidence of diastolic dysfunction. Ordering Physician: Rudy Ag Referring Physician: Rudy Ag Performed By: Lucila Damon RCS
== END | disposition home or self-care (01) ==
LOC: CVS 15:05
PROVIDERS: PCP Nurse Practitioner Family; Referring Provider Internal Medicine Cardiovascular Disease; Visit Provider Internal Medicine Cardiovascular Disease
DX: I10 Essential (primary) hypertension (principal); I34.0 Nonrheumatic mitral (valve) insufficiency
CPT/HCPCS: 93306; Q9957; A4216; C8929

== ENCOUNTER 2022-02-07 14:12 | Emergency (ER) | payer OTHER, SELFPAY ==
[2022-02-07] VITALS (11 sets, daily range): BP systolic 155–195; BP diastolic 64–95; PULSE 49–74; RESP 15–20; TEMP 36.3–36.8; O2SAT 97–100; BMI 48.0
--- NOTE | 2022-02-07 14:26 | EDS_ITS ---
HPI History of Present Illness Chief Complaint: Chest Pain Narrative Narrative: 36-year-old female here with a chief complaint of chest pain. Past medical history UTI. The patient states she developed acute midsternal chest pain approximate 1-1/2 hours prior to arrival. The pain is not radiating. Is worse when lying flat. Denies history of CAD, heart attacks, denies family history of heart attacks. She states the symptoms are constant, not exertional. Not pleuritic. Denies any recent surgery, chemotherapy, estrogen use, unilateral leg swelling, hemoptysis. Denies any connective tissue disorder such as Flower- Danlos or Marfan syndrome. Denies any numbness tingling or loss of sensation. Denies any recent illness, fever cough. Old chart reviewed: Echocardiogram from 01/27/2022 shows ejection fraction of 65% Last ED visit on 01/20/2022 for hypertension. Troponin level was negative at that time [facility] Medical History (Updated 02/07/22 @ 15:20 by Josephine Soni) HTN (hypertension) UTI (urinary tract infection) during Home Medications labetalol 200 mg tablet 200 mg PO BID #60 tabs 01/18/22 [Rx Last Taken 01/19/22] Allergy/AdvReac Type Severity Reaction Status Date / Time No Known Allergies Allergy Verified 01/20/22 12:01 Family History Mother Cancer possibly ovarian Social History adopted: No household members: spouse number of children: 1 current occupational status: employed current occupation: [employer] pets and animals: Yes (avoid litter box) pets and animals: cat(s) and dog(s) Smoking Status: Never smoker alcohol intake: never substance use type: does not use caffeine: Yes do you feel safe at home: Yes additional social history: Spouse: Jim MERCHANT ED Eyes Eyes: Denies other visual disturbances ENT ENT ED: Denies ear pain Cardiovascular Cardiovascular: Reports chest pain Respiratory/Chest Respiratory/Chest: Reports dyspnea on exertion; Denies dyspnea Gastrointestinal Gastrointestinal: Denies abdominal pain Genitourinary Genitourinary ED: Denies dysuria Musculoskeletal Musculoskeletal: Reports other Details: Negative for new leg swelling ; Denies joint pain Integumentary Denies rash Neurologic Neurologic: Denies dizziness, focal weakness, numbness, syncope or weakness Psychiatric Psychiatric: Denies homicidal ideation or suicidal ideation EXAM Physical Exam Const Vital Signs: 02/07/22 14:12 02/07/22 14:54 02/07/22 15:21 Temperature 97.6 F L Temperature Source Temporal Pulse Rate 56 L 70 65 Respiratory Rate 16 18 20 H Blood Pressure 176/85 H Blood Pressure Mean 115 Pulse Ox 100 98 98 Oxygen Delivery Method Room Air Room Air Room Air 02/07/22 15:44 02/07/22 17:02 Temperature Temperature Source Pulse Rate 49 L Respiratory Rate 18 Blood Pressure 164/86 H Blood Pressure Mean 112 Pulse Ox 99 98 Oxygen Delivery Method Room Air Room Air Negative for alert or oriented x3 General Appearance ED: Negative for comfortable Orientation / Consciousness: Negative for awake HEENT Denies normocephalic Face and Sinus: Negative for face symmetric External Ear: Negative for external ears normal Mouth ED: No moist mucous membranes normal Throat: Negative for posterior oropharynx normal Eyes Negative for PERRL or EOMs intact bilaterally Neck No full ROM and no JVD Carotids: other Other Details: no carotid bruits Chest Wall Negative for inspection of chest normal Resp No normal respiratory effort, No no retractions, No no use of accessory muscles and No clear to auscultation bilaterally Effort and Inspection: Negative for retractions Auscultation: Negative for rales, rhonchi or wheezes Cardio regular rate, regular rhythm, S1 normal heart sound and S2 normal heart sound; Negative for no murmurs or peripheral pulses 2+ throughout GI Negative for no bruits GI Narrative: no pulsatile abdominal masses Negative for no CVA tenderness Back/Spine Cervical Spine: Negative for cervical ROM normal Extremity Negative for normal to inspection or full ROM MDM MDM MDM Narrative Medical decision making narrative: 36-year-old female here with acute onset of chest pain. Patient was hemodynamically stable, afebrile, nontoxic-appearing. There are no focal cardiopulmonary abnormalities my initial exam. I have a low suspicion for aortic dissection as the patient has no active tissue disorders, no pulse deficits, no numbness or weakness. Low suspicion for pulmonary embolism as well as patient has a low risk Wells score, negative PERC criteria. Concerned for myocardial ischemia, anemia, arrhythmia, electrolyte abnormalities, pneumothorax. Chest x-ray without acute abnormality. EKG without evidence of STEMI. CBC without significant anemia, BMP without significant electrolyte abnormalities. Initial troponin negative. Patient is awaiting delta troponin for rule out. Heart score 2. If the patient's delta troponin is negative she can be discharged home with close PCP follow-up for further outpatient testing. signed out to p.m. physician pending repeat troponin and discharge. Lab Data Attestation: I reviewed the patient's lab results. Lab results narrative: CBC with mild leukocytosis downtrending from prior study, mild anemia worse from prior study, no thrombocytopenia BMP without evidence of significant electrolyte abnormalities, no anion gap, no acute kidney injury Troponin negative low suspicion for myocardial ischemia Labs: Laboratory Results - last 24 hr 02/07/22 02/07/22 15:40 15:40 WBC 11.4 H RBC 3.99 L Hgb 10.4 L Hct 33.4 L MCV 83.7 MCH 26.1 L MCHC 31.1 L RDW Std Deviation 43.8 RDW Coeff of Nacho 14.4 Plt Count 346 MPV 10.5 Immature Gran % (Auto) 0.300 Neut % (Auto) 67.7 Lymph % (Auto) 20.6 Hale % (Auto) 7.0 Eos % (Auto) 3.8 Baso % (Auto) 0.6 Absolute Neuts (auto) 7.7 Absolute Lymphs (auto) 2.35 Nucleated RBC % 0 Sodium 142 Potassium 3.6 Chloride 110 H Carbon Dioxide 27.0 Anion Gap 5 BUN 12 Creatinine 0.89 Estim Creat Clear Calc 76.19 Est GFR (MDRD) Af Amer 92 Est GFR (MDRD) Non-Af 76 BUN/Creatinine Ratio 13.5 Glucose 95 Calcium 8.9 Troponin I High Sens 5 Radiography Diagnostic Testing: Clinical Impression(s) from Imaging Studies Chest X-Ray 02/07/22 15:40 IMPRESSION: There are no acute findings. Electronically Signed: Filippo Marie MD at 15:57 EDT , EKG Initial EKG: Comments: EKG with sinus bradycardia, left axis deviation, normal intervals, no STEMI Discharge Plan Triage Chief Complaint: Chest Pain ED Provider: Quang Sifuentes Dx/Rx/DC Orders Prescriptions: No Action labetalol 200 mg tablet 200 mg PO BID Qty: 60 0RF Primary Care Provider: Lolita Laguna NP Referrals: Lolita Laguna NP, [facility] [Primary Care Provider] -
--- NOTE | 2022-02-07 15:28 | EKG12_ITS ---
Test Reason : CHEST PAIN Blood Pressure : / mmHG Vent. Rate : 057 BPM Atrial Rate : 057 BPM P-R Int : 162 ms QRS Dur : 094 ms QT Int : 438 ms P-R-T Axes : 021 -13 051 degrees QTc Int : 426 ms Sinus bradycardia with sinus arrhythmia Inferior infarct , age undetermined, cannot be excluded Poor R wave progression Anterior OK, age undetermined, cannot be excluded Abnormal ECG Confirmed by MARIANNE ZAMORA, VIKAS ([id number]), multimedia editor ROSIE COOK ([id number]) on 02/08/2022 9:06:35 AM Referred By: NORRIS Confirmed By:VIKAS LOPES MD
--- NOTE | 2022-02-07 15:40 | RAD_ITS ---
STUDY: X-RAY CHEST REASON FOR EXAM: Female, 36 years old. CHEST PAIN chest pain TECHNIQUE: XR Chest 1 View COMPARISON: None FINDINGS: There is no demonstrated pleural abnormality. Normal size heart. Normal mediastinum and jie. Normal visualized pulmonary arteries. Normal visualized aortic arch and descending thoracic aorta. Normal visualized thoracic spine. Normal visualized ribs, clavicles, and shoulders. There is no demonstrated abnormality of the visualized soft tissue structures of the upper abdomen. RAD/Chest 1 View (Portable) IMPRESSION: There are no acute findings. Electronically Signed: Filippo Marie MD at 15:57 EDT ,
[2022-02-07] MEDS: Aspirin 81 MG TAB.CHEW 324 MG PO (15:42)
[2022-02-07 15:49] LABS: Absolute Lymphocyte Count 2.35 X10^3/uL (0.83-4.51); Absolute Neutrophil Count 7.7 X10^3/uL (2.0-7.7); Basophil# 0.07 X10^3/uL; Basophil% 0.6 % (0-1); Eosinophil# 0.44 X10^3/uL; Eosinophils% 3.8 % (0-5); Hematocrit 33.4 % (37-47); Hemoglobin 10.4 g/dL (12.0-15.0); Lymphocyte # 2.35 X10^3/ul (0.83-4.51); Lymphocyte % 20.6 % (19-41); Mean Corp Hgb Conc 31.1 g/dL (32-36); Mean Corpuscular Hgb 26.1 pg (27.0-32.0); Mean Corpuscular Volume 83.7 fL (81-99); Mean Platelet Vol. 10.5 fl (6.2-12.0); NRBC Flagged by Analyzer 0 % (0-5); Neutrophil # 7.74 X10^3/uL (2.7-7.7); Neutrophil % 67.7 % (47-70); Platelet Count 346 K/mm3 (150-450); RBC Distribution Width CV 14.4 % (11.6-14.6); RBC Distribution Width SD 43.8 fl (35.1-43.9); Red Blood Count 3.99 M/mm3 (4.2-5.4); White Blood Count 11.4 K/mm3 (4.4-11.0)
[2022-02-07 16:09] LABS: Anion Gap 5 (5-15); BUN 12 mg/dL (7-18); BUN/Creat Ratio 13.5 RATIO (10-20); Calcium,Total 8.9 mg/dL (8.5-10.1); Chloride 110 mmol/L (98-107); Creatinine, Serum 0.89 mg/dL (0.55-1.02); EST Glomerular Filtration Rate 76 mL/min (>60); Est Glom Filt Rate - Afr Amer 92 mL/min (>60); Estimated Creatinine Clearance 76.19 ml/min; Glucose 95 mg/dL (74-106); Potassium 3.6 mmol/L (3.5-5.1); Sodium Level 142 mmol/L (136-145); Troponin-I HS (w/2H Reflex) 5 pg/mL (3.0-54.0)
[2022-02-07 17:46] LABS: Reflex Troponin-HS? (from REC) Y
[2022-02-07 20:20] LABS: Troponin-I HS 3 pg/mL (3.0-54.0)
== END 2022-02-07 20:51 | disposition home or self-care (01) ==
PROVIDERS: Emergency Provider Emergency Medicine; PCP Nurse Practitioner Family; Visit Provider Emergency Medicine
DX: R07.9 Chest pain, unspecified (principal); I10 Essential (primary) hypertension; R00.1 Bradycardia, unspecified
CPT/HCPCS: 71045; 80048; 84484; 85025; 93005; 99283; A4216

== ENCOUNTER 2022-08-25 19:05 | Emergency (ER) | payer OTHER, SELFPAY ==
[2022-08-25 19:06] VITALS: BP 169/100; PULSE 65; RESP 18; TEMP 36.1; O2SAT 100; BMI 62.0
--- NOTE | 2022-08-25 21:08 | US_ITS ---
ACR Level 3 findings have been noted. An addendum which confirms receipt of the report will follow. EXAM: US , TRANSVAGINAL CLINICAL INDICATION: Bleeding, cramping TECHNIQUE: Real-time transvaginal obstetrical ultrasound of the maternal pelvis and a first trimester with image documentation. Transvaginal imaging was used for better evaluation of the fetus and adnexa. This report was created using [employer] report generation technology. COMPARISON: Prior exam January 20, 2022. FINDINGS: GESTATION: Intrauterine gestation sac 3.5 cm x 4.1 cm x 3.8 cm consistent with 9 weeks 2 days gestation. pole 2.7 cm consistent with 9 weeks 2 days gestation age. heart rate 171 bpm. 4 mm yolk sac. Hypoechoic fluid collection measuring 1.6 cm x 1 cm x 1 cm immediately anterior-superior to the gestation sac. No mass effect. UTERUS/CERVIX: 13.1 cm x 6.9 cm x 8.5 cm uterus. Small nabothian cervical cysts. No myometrial mass. Subchorionic hemorrhage, see above. OVARIES: Nonvisualized left ovary. Right 2.4 cm x 2.6 cm x 3.2 cm with documented blood flow. FREE FLUID: No free fluid. BLADDER: Mildly distended with slight intermediate level echoes. US/Transvaginal w/Preg US IMPRESSION: Single live intrauterine . 9 weeks 2 days sonographic EGA. 1.6 cm maximum diameter subchorionic hemorrhage immediately anterior-superior to the gestation sac. Nonvisualized left ovary. Tiny floating echoes in the bladder, correlate with any evidence of UTI. Electronically Signed: Brenda Knapp MD at 22:13 EST ,
--- NOTE | 2022-08-25 21:09 | ED.VIS.FEGU ---
HPI HPI - Female History of Present Illness Chief Complaint: Vag Bld, Preg Informant: patient Narrative Narrative: Patient presents with vaginal bleeding and a slight amount of cramping. This started about 3 hours ago. Its less than a menstrual cycle. No clots. No tissue. It seems little better but is still going on slightly. She does not feel ill. No back pain. She has blood type a positive and this was verified in the computer by reviewing prior records from her outpatient labs. Patient has a history of a prior abruption late in . She is G3, P1. Last menstrual cycle was 21 June. She had an ultrasound at a different hospital about 4 weeks ago when she thought her water broke. Patient does have a history of high blood pressure both during and after . Known diabetes. Only medication labetalol. No known allergies No recent surgeries Non-smoker. PFSH PFS Medical History HTN (hypertension) Incomplete miscarriage UTI (urinary tract infection) during Home Medications labetalol 200 mg tablet 200 mg PO BID #60 tabs 01/18/22 [Rx Last Taken 01/19/22] Allergy/AdvReac Type Severity Reaction Status Date / Time No Known Allergies Allergy Verified 08/25/22 19:06 Family History Mother Cancer possibly ovarian Social History adopted: No household members: spouse number of children: 1 current occupational status: employed current occupation: [employer] pets and animals: Yes (avoid litter box) pets and animals: cat(s) and dog(s) Smoking Status: Never smoker alcohol intake: never substance use type: does not use caffeine: Yes do you feel safe at home: Yes additional social history: Spouse: Jim EXAM Physical Exam Narrative Exam Narrative: Patient awake alert sitting comfortably in bed. She is not toxic or ill-appearing. She does not look like she is in pain. She is not pale or diaphoretic. Her lungs are clear. Her heart is regular at about 60 or 70. No murmur gallop or rub. Abdomen is obese but overall benign. There is no tenderness on exam. There is no CVA tenderness. Her extremities are not small but there is no edema tenderness or asymmetry. Skin shows no pallor. Const Vital Signs: 08/25/22 19:06 08/25/22 23:41 Temperature 97 F L Temperature Source Temporal Pulse Rate 65 Respiratory Rate 18 Blood Pressure 169/100 H Blood Pressure Mean 123 Pulse Ox 100 99 Oxygen Delivery Method Room Air Room Air MDM MDM MDM Narrative Medical decision making narrative: Pelvic ultrasound read by radiology shows IUP at 9 weeks 2 days with subchorionic hemorrhage 1 to 1.6 cm. I reviewed these images reading was done by radiology Patient's hCG is high at slightly over 99,000. Urinalysis shows no acute sign of infection. White count is minimally up at 13.7 which is nonspecific. Minimal anemia at 11.3 however, I have reviewed prior labs done as an outpatient on our chart. This hemoglobin is slightly above her last level. Patient's not having any significant bleeding at this time. She has an appointment with her supplier specialist tomorrow. She states that a week ago she had a small area of bleeding right next to the baby in the uterus 2. This is likely what were seen today. I think it 9/10 weeks we cannot acutely intervene. She should rest until seen tomorrow. Lab Data Labs: Laboratory Results - last 24 hr 08/25/22 08/25/22 08/25/22 21:15 21:15 22:08 WBC Cancelled 13.7 H Corrected WBC Cancelled RBC Cancelled 4.43 Hgb Cancelled 11.3 L Hct Cancelled 36.1 L MCV Cancelled 81.5 MCH Cancelled 25.5 L MCHC Cancelled 31.3 L RDW Std Deviation Cancelled 43.6 RDW Coeff of Nacho Cancelled 14.9 H Plt Count Cancelled 280 MPV Cancelled 11.6 Immature Gran % (Auto) Cancelled 0.400 Neut % (Auto) Cancelled 72.0 H Lymph % (Auto) Cancelled 19.7 Carter % (Auto) Cancelled 5.8 Eos % (Auto) Cancelled 1.7 Baso % (Auto) Cancelled 0.4 Absolute Neuts (auto) Cancelled 9.9 H Absolute Lymphs (auto) Cancelled 2.70 Total Counted Cancelled Neutrophils % (Manual) Cancelled Band Neutrophils % Cancelled Lymphocytes % (Manual) Cancelled Monocytes % (Manual) Cancelled Eosinophils % (Manual) Cancelled Basophils % (Manual) Cancelled Metamyelocytes % Cancelled Myelocytes % Cancelled Promyelocytes % Cancelled Blast Cells % Cancelled Plasma Cell % (Manual) Cancelled Other Cells % Cancelled Nucleated RBC % Cancelled 0 Nucleated RBCs/100 WBC Cancelled Differential Comment Cancelled Diff Path Review Cancelled Hypersegmented Neuts Cancelled Atypical Lymphocytes Cancelled Reactive Lymphocytes Cancelled Smudge Cells Cancelled Toxic Granulation Cancelled Toxic Vacuolation Cancelled Dohle Bodies Cancelled Randall Rods Cancelled Platelet Estimate Cancelled Plt Morphology Comment Cancelled RBC Morphology Cancelled Polychromasia Cancelled Hypochromasia Cancelled Poikilocytosis Cancelled Basophilic Stippling Cancelled Anisocytosis Cancelled Microcytosis Cancelled Macrocytosis Cancelled Spherocytes Cancelled Sickle Cells Cancelled Target Cells Cancelled Tear Drop Cells Cancelled Ovalocytes Cancelled Stomatocytes Cancelled Carlos-Granby Bodies Cancelled Amy Cells Cancelled Bite Cells Cancelled Crenated Cell Cancelled Acanthocytes (Spur) Cancelled Rouleaux Cancelled Schistocytes Cancelled HCG, Quant 27124 H Urine Color Urine Clarity Urine pH Ur Specific [place] Urine Protein Urine Glucose (UA) Urine Ketones Urine Occult Blood Urine Nitrite Urine Bilirubin Urine Urobilinogen Ur Leukocyte Esterase Urine RBC Urine WBC Ur Squamous Epith Cells Urine Bacteria Urine Mucus 08/25/22 23:38 WBC Corrected WBC RBC Hgb Hct MCV MCH MCHC RDW Std Deviation RDW Coeff of Nacho Plt Count MPV Immature Gran % (Auto) Neut % (Auto) Lymph % (Auto) Carter % (Auto) Eos % (Auto) Baso % (Auto) Absolute Neuts (auto) Absolute Lymphs (auto) Total Counted Neutrophils % (Manual) Band Neutrophils % Lymphocytes % (Manual) Monocytes % (Manual) Eosinophils % (Manual) Basophils % (Manual) Metamyelocytes % Myelocytes % Promyelocytes % Blast Cells % Plasma Cell % (Manual) Other Cells % Nucleated RBC % Nucleated RBCs/100 WBC Differential Comment Diff Path Review Hypersegmented Neuts Atypical Lymphocytes Reactive Lymphocytes Smudge Cells Toxic Granulation Toxic Vacuolation Dohle Bodies Randall Rods Platelet Estimate Plt Morphology Comment RBC Morphology Polychromasia Hypochromasia Poikilocytosis Basophilic Stippling Anisocytosis Microcytosis Macrocytosis Spherocytes Sickle Cells Target Cells Tear Drop Cells Ovalocytes Stomatocytes Carlos-Granby Bodies Gardiner Cells Bite Cells Crenated Cell Acanthocytes (Spur) Rouleaux Schistocytes HCG, Quant Urine Color Yellow Urine Clarity Sl. Cloudy Urine pH 6.5 Ur Specific [place] 1.015 Urine Protein 30 H Urine Glucose (UA) Normal Urine Ketones Negative Urine Occult Blood 250 H Urine Nitrite Negative Urine Bilirubin Negative Urine Urobilinogen Normal Ur Leukocyte Esterase 500 H Urine RBC 0-5 SEEN Urine WBC 0-5 SEEN Ur Squamous Epith Cells 0-5 SEEN Urine Bacteria 1+ Urine Mucus 0 SEEN Radiography Diagnostic Testing: Clinical Impression(s) from Imaging Studies Obstetrics Ultrasound 08/25/22 21:08 IMPRESSION: Single live intrauterine . 9 weeks 2 days sonographic EGA. 1.6 cm maximum diameter subchorionic hemorrhage immediately anterior-superior to the gestation sac. Nonvisualized left ovary. Tiny floating echoes in the bladder, correlate with any evidence of UTI. Electronically Signed: Brenda Knapp MD at 22:13 EST , ADDENDUM: 08/25/222229 IMPRESSION: Single live intrauterine . 9 weeks 2 days sonographic EGA. 1.6 cm maximum diameter subchorionic hemorrhage immediately anterior-superior to the gestation sac. Nonvisualized left ovary. Tiny floating echoes in the bladder, correlate with any evidence of UTI. N.B. : RIVERA LOWE MD, confirmed on 08/25/2022 22:23:46 (ET) that the healthcare facility has received the radiology report. Electronically Signed: Brenda Knapp MD at 22:13 EST , Discharge Plan Triage Chief Complaint: Vag Bld, Preg ED Provider: Rivera Lowe Dx/Rx/DC Orders Clinical Impression: Vaginal bleeding affecting early Instructions: Bleeding During Early Prescriptions: No Action labetalol 200 mg tablet 200 mg PO BID Qty: 60 0RF Primary Care Provider: Lolita Laguna NP Referrals: Marixa Thomas DO [Med Staff - Active Staff] - 1 Day (See tomorrow as scheduled) Lolita Laguna MECHANICAL ENGINEERING ADVISOR, MECHANICAL ENGINEERING ADVISOR-C [Primary Care Provider] - Disposition Disposition: Home, Self Care
[2022-08-25 22:17] LABS: Absolute Neutrophil Count 9.9 X10^3/uL (2.0-7.7); Basophil# 0.05 X10^3/uL; Basophil% 0.4 % (0-1); Eosinophil# 0.23 X10^3/uL; Eosinophils% 1.7 % (0-5); Hematocrit 36.1 % (37-47); Hemoglobin 11.3 g/dL (12.0-15.0); Lymphocyte % 19.7 % (19-41); Mean Corp Hgb Conc 31.3 g/dL (32-36); Mean Corpuscular Hgb 25.5 pg (27.0-32.0); Mean Corpuscular Volume 81.5 fL (81-99); Mean Platelet Vol. 11.6 fl (6.2-12.0); Monocyte# 0.79 X10^3/uL; Monocyte% 5.8 % (0-10); NRBC Flagged by Analyzer 0 % (0-5); Neutrophil # 9.87 X10^3/uL (2.7-7.7); Platelet Count 280 K/mm3 (150-450); RBC Distribution Width CV 14.9 % (11.6-14.6); RBC Distribution Width SD 43.6 fl (35.1-43.9); Red Blood Count 4.43 M/mm3 (4.2-5.4); White Blood Count 13.7 K/mm3 (4.4-11.0)
[2022-08-25 23:41] VITALS: O2SAT 99
[2022-08-25 23:49] LABS: Mucous, Urine 0 SEEN /hpf (<or=2+)
[2022-08-25 23:58] LABS: Color, Urine Yellow (Yellow); Glucose, Dipstick Normal (Normal); Ketone-Dipstick Negative (Negative); Leukocyte Esterase-Dipstick 500 /ul (Negative); Nitrite-Dipstick Negative (Negative); Occult Blood-Urine 250 /ul (Negative); Protein-Dipstick 30 mg/dl (Negative); Specific Gravity, Urine 1.015 (1.002-1.030); Urine Bilirubin Dipstick Negative (Negative); Urine Clarity Sl. Cloudy (Clear); Urine Urobilinogen Normal (Normal); Urine pH 6.5 (5.0 - 8.0)
[2022-08-26 00:16] LABS: Bacteria 1+ /hpf (None Seen); Red Blood Cells-Urine 0-5 SEEN /hpf (0-5); Squamous Epithelial Cells - UA 0-5 SEEN /hpf (5-10); White Blood Cells 0-5 SEEN /hpf (0-5)
== END 2022-08-26 00:38 | disposition home or self-care (01) ==
PROVIDERS: Emergency Medicine; Emergency Provider Emergency Medicine; PCP Nurse Practitioner Family; Visit Provider Emergency Medicine
DX: O20.9 Hemorrhage in early pregnancy, unspecified (principal); E11.9 Type 2 diabetes mellitus without complications; O24.311 Unspecified pre-existing diabetes mellitus in pregnancy, first trimester; O99.011 Anemia complicating pregnancy, first trimester; D64.9 Anemia, unspecified; O09.521 Supervision of elderly multigravida, first trimester; Z3A.09 9 weeks gestation of pregnancy
CPT/HCPCS: 76817; 81001; 84702; 85025; 99282; A4216

== ENCOUNTER → 2022-08-26 | Outpatient (CLI) | payer OTHER, SELFPAY ==
[2022-08-26 14:11] LABS: Absolute Lymphocyte Count 1.65 X10^3/uL (0.83-4.51); Absolute Neutrophil Count 8.7 X10^3/uL (2.0-7.7); Basophil# 0.04 X10^3/uL; Basophil% 0.4 % (0-1); Eosinophil# 0.16 X10^3/uL; Eosinophils% 1.4 % (0-5); Hematocrit 35.6 % (37-47); Hemoglobin 11.2 g/dL (12.0-15.0); Lymphocyte # 1.65 X10^3/ul (0.83-4.51); Lymphocyte % 14.5 % (19-41); Mean Corp Hgb Conc 31.5 g/dL (32-36); Mean Corpuscular Hgb 26.2 pg (27.0-32.0); Mean Corpuscular Volume 83.2 fL (81-99); Mean Platelet Vol. 11.4 fl (6.2-12.0); Monocyte# 0.82 X10^3/uL; Monocyte% 7.2 % (0-10); NRBC Flagged by Analyzer 0 % (0-5); Neutrophil % 76.2 % (47-70); Platelet Count 330 K/mm3 (150-450); RBC Distribution Width CV 15.1 % (11.6-14.6); RBC Distribution Width SD 45.5 fl (35.1-43.9); Red Blood Count 4.28 M/mm3 (4.2-5.4); White Blood Count 11.4 K/mm3 (4.4-11.0)
[2022-08-26 14:14] LABS: Protein, Urine (Random) 21.7 mg/dL (<11.9); Protein:Creat Ratio 175 mg/g CRE (0-200)
[2022-08-26 14:36] LABS: ALB/GLOB Ratio 0.8 RATIO (0.9-2.4); AST(SGOT) 13 U/L (15-37); Alanine Aminotransfer ALT/SGPT 18 U/L (13-56); Albumin, Serum 3.2 g/dL (3.2-5.0); Alkaline Phosphatase 53 U/L (45-117); Anion Gap 4 (5-15); BUN 12 mg/dL (7-18); BUN/Creat Ratio 18.7 RATIO (10-20); Calcium,Total 8.9 mg/dL (8.5-10.1); Chloride 108 mmol/L (98-107); Creatinine, Serum 0.64 mg/dL (0.55-1.02); EST Glomerular Filtration Rate 111 mL/min (>60); Est Glom Filt Rate - Afr Amer 134 mL/min (>60); Globulin 3.8 g/dL (2.2-4.2); Glucose 83 mg/dL (74-106); LDH 225 U/L (84-246); Sodium Level 136 mmol/L (136-145)
[2022-08-26 16:51] LABS: HIV - WCH Non-Reactive (Nonreactive); Hepatitis B Surface Antigen Non-Reactive (Nonreactive); Hepatitis C Antibody Non-Reactive (Nonreactive); Rubella IgG Reactive (Nonreactive); Syphilis Antibodies Non-reactive
[2022-08-28 12:26] LABS: V-Zoster IgG (Immunity) 828 index (Immune >165)
[2022-09-01 21:50] LABS: HPV APTIMA, High Risk Negative (Negative)
== END | disposition home or self-care (01) ==
LOC: WOBLAB 12:26
PROVIDERS: PCP Nurse Practitioner Family; Visit Provider Student in an Organized Health Care Education/Training Program
DX: Z34.81 Encounter for supervision of other normal pregnancy, first trimester (principal); I10 Essential (primary) hypertension; N91.1 Secondary amenorrhea
CPT/HCPCS: 36415; 80053; 82570; 83615; 84156; 85025; 86703; 86762; 86780; 86787; 86803; 87086; 87088; 87186; 87340; 87624; 88175; G0145

== ENCOUNTER → 2022-10-07 | Outpatient (CLI) | payer OTHER, SELFPAY ==
[2022-10-07 10:54] LABS: Hemoglobin 10.5 g/dL (12.0-15.0); Mean Corp Hgb Conc 31.8 g/dL (32-36); Mean Corpuscular Hgb 26.8 pg (27.0-32.0); Mean Corpuscular Volume 84.2 fL (81-99); Mean Platelet Vol. 10.7 fl (6.2-12.0); Platelet Count 253 K/mm3 (150-450); RBC Distribution Width CV 16.3 % (11.6-14.6); RBC Distribution Width SD 49.8 fl (35.1-43.9); Red Blood Count 3.92 M/mm3 (4.2-5.4); White Blood Count 9.4 K/mm3 (4.4-11.0)
[2022-10-07 11:20] LABS: Glucose Challenge Gest 1H 50g 117 mg/dL (70-140)
== END | disposition home or self-care (01) ==
LOC: WOBLAB 10:23
PROVIDERS: PCP Nurse Practitioner Family; Visit Provider Student in an Organized Health Care Education/Training Program
DX: O99.891 Other specified diseases and conditions complicating pregnancy (principal); R30.0 Dysuria
CPT/HCPCS: 82950; 85027; 87086; 87088; 87186

== ENCOUNTER → 2022-11-04 | Outpatient (CLI) | payer OTHER, SELFPAY | END | disposition home or self-care (01) | LOC: LABSPEC 14:59 | PROVIDERS: PCP Nurse Practitioner Family; Visit Provider Student in an Organized Health Care Education/Training Program | DX: Z34.82 Encounter for supervision of other normal pregnancy, second trimester (principal) | CPT/HCPCS: 87077; 87086; 87088; 87186 ==

== ENCOUNTER → 2022-12-23 | Outpatient (CLI) | payer OTHER, SELFPAY ==
[2022-12-23 16:16] LABS: Absolute Lymphocyte Count 1.81 X10^3/uL (0.83-4.51); Absolute Neutrophil Count 8.7 X10^3/uL (2.0-7.7); Basophil# 0.03 X10^3/uL; Basophil% 0.3 % (0-1); Eosinophil# 0.16 X10^3/uL; Eosinophils% 1.4 % (0-5); Hematocrit 30.5 % (37-47); Hemoglobin 9.7 g/dL (12.0-15.0); Lymphocyte # 1.81 X10^3/ul (0.83-4.51); Lymphocyte % 16.1 % (19-41); Mean Corp Hgb Conc 31.8 g/dL (32-36); Mean Corpuscular Hgb 27.6 pg (27.0-32.0); Mean Corpuscular Volume 86.9 fL (81-99); Monocyte# 0.52 X10^3/uL; Monocyte% 4.6 % (0-10); NRBC Flagged by Analyzer 0 % (0-5); Neutrophil # 8.67 X10^3/uL (2.7-7.7); Neutrophil % 77.2 % (47-70); Platelet Count 265 K/mm3 (150-450); RBC Distribution Width CV 14.8 % (11.6-14.6); RBC Distribution Width SD 46.9 fl (35.1-43.9); Red Blood Count 3.51 M/mm3 (4.2-5.4); White Blood Count 11.2 K/mm3 (4.4-11.0)
[2022-12-23 16:41] LABS: ALB/GLOB Ratio 0.7 RATIO (0.9-2.4); AST(SGOT) 11 U/L (15-37); Alanine Aminotransfer ALT/SGPT 18 U/L (13-56); Albumin, Serum 2.4 g/dL (3.2-5.0); Alkaline Phosphatase 70 U/L (45-117); Anion Gap 9 (5-15); BUN 8 mg/dL (7-18); BUN/Creat Ratio 12.4 RATIO (10-20); Calcium,Total 8.5 mg/dL (8.5-10.1); Chloride 108 mmol/L (98-107); Creatinine, Serum 0.65 mg/dL (0.55-1.02); EST Glomerular Filtration Rate 110 mL/min (>60); Est Glom Filt Rate - Afr Amer 133 mL/min (>60); Globulin 3.5 g/dL (2.2-4.2); Glucose 137 mg/dL (74-106); Glucose Challenge Gest 1H 50g 137 mg/dL (70-140); Potassium 3.4 mmol/L (3.5-5.1); Protein, Total 5.9 g/dL (6.4-8.2); Sodium Level 139 mmol/L (136-145)
[2022-12-23 17:34] LABS: Syphilis Antibodies Non-reactive
== END | disposition home or self-care (01) ==
LOC: WOBLAB 15:15
PROVIDERS: PCP Nurse Practitioner Family; Visit Provider Student in an Organized Health Care Education/Training Program
DX: O13.3 Gestational [pregnancy-induced] hypertension without significant proteinuria, third trimester (principal); Z87.440 Personal history of urinary (tract) infections
CPT/HCPCS: 36415; 80053; 82950; 85025; 86780; 87086; 87088; 87186

== ENCOUNTER → 2023-01-27 | Outpatient (CLI) | payer OTHER, SELFPAY | END | disposition home or self-care (01) | LOC: LABSPEC 10:46 | PROVIDERS: PCP Nurse Practitioner Family; Visit Provider Nurse Practitioner Women's Health | DX: N39.0 Urinary tract infection, site not specified (principal) | CPT/HCPCS: 87077; 87086; 87088; 87186 ==

== ENCOUNTER → 2023-02-10 | Outpatient (CLI) | payer OTHER, SELFPAY ==
[2023-02-10 15:01] LABS: Absolute Lymphocyte Count 1.78 X10^3/uL (0.83-4.51); Absolute Neutrophil Count 9.3 X10^3/uL (2.0-7.7); Basophil# 0.02 X10^3/uL; Basophil% 0.2 % (0-1); Eosinophil# 0.14 X10^3/uL; Eosinophils% 1.1 % (0-5); Hematocrit 32.9 % (37-47); Hemoglobin 10.5 g/dL (12.0-15.0); Lymphocyte # 1.78 X10^3/ul (0.83-4.51); Lymphocyte % 14.5 % (19-41); Mean Corp Hgb Conc 31.9 g/dL (32-36); Mean Corpuscular Hgb 28.1 pg (27.0-32.0); Monocyte# 0.97 X10^3/uL; Monocyte% 7.9 % (0-10); NRBC Flagged by Analyzer 0 % (0-5); Neutrophil # 9.31 X10^3/uL (2.7-7.7); Neutrophil % 75.9 % (47-70); Platelet Count 270 K/mm3 (150-450); RBC Distribution Width CV 14.6 % (11.6-14.6); RBC Distribution Width SD 46.8 fl (35.1-43.9); Red Blood Count 3.74 M/mm3 (4.2-5.4); White Blood Count 12.3 K/mm3 (4.4-11.0)
[2023-02-10 15:14] LABS: Protein, Urine (Random) 67.6 mg/dL (<11.9); Protein:Creat Ratio 322 mg/g CRE (0-200)
[2023-02-10 15:36] LABS: ALB/GLOB Ratio 0.6 RATIO (0.9-2.4); AST(SGOT) 8 U/L (15-37); Alanine Aminotransfer ALT/SGPT 12 U/L (13-56); Albumin, Serum 2.4 g/dL (3.2-5.0); Alkaline Phosphatase 76 U/L (45-117); Anion Gap 7 (5-15); BUN 10 mg/dL (7-18); BUN/Creat Ratio 14.6 RATIO (10-20); Chloride 108 mmol/L (98-107); Creatinine, Serum 0.69 mg/dL (0.55-1.02); EST Glomerular Filtration Rate 103 mL/min (>60); Est Glom Filt Rate - Afr Amer 124 mL/min (>60); Globulin 4.1 g/dL (2.2-4.2); Glucose 97 mg/dL (74-106); LDH 198 U/L (84-246); Potassium 3.6 mmol/L (3.5-5.1); Protein, Total 6.5 g/dL (6.4-8.2); Sodium Level 138 mmol/L (136-145)
== END | disposition home or self-care (01) ==
LOC: WOBLAB 14:42
PROVIDERS: PCP Nurse Practitioner Family; Visit Provider Student in an Organized Health Care Education/Training Program
DX: O10.413 Pre-existing secondary hypertension complicating pregnancy, third trimester (principal); Z3A.00 Weeks of gestation of pregnancy not specified
CPT/HCPCS: 36415; 80053; 82570; 83615; 84156; 85025; 87086; 87088

== ENCOUNTER → 2023-02-24 | Outpatient (CLI) | payer OTHER, SELFPAY ==
[2023-02-24 16:53] LABS: Hematocrit 35.6 % (37-47); Hemoglobin 11.3 g/dL (12.0-15.0); Mean Corp Hgb Conc 31.7 g/dL (32-36); Mean Corpuscular Hgb 28.3 pg (27.0-32.0); Mean Corpuscular Volume 89.2 fL (81-99); Platelet Count 286 K/mm3 (150-450); RBC Distribution Width CV 14.6 % (11.6-14.6); RBC Distribution Width SD 46.7 fl (35.1-43.9); Red Blood Count 3.99 M/mm3 (4.2-5.4); White Blood Count 13.4 K/mm3 (4.4-11.0)
[2023-03-01 09:09] LABS: HPV APTIMA, High Risk Negative (Negative)
== END | disposition home or self-care (01) ==
LOC: WOBLAB 16:33
PROVIDERS: PCP Nurse Practitioner Family; Visit Provider Nurse Practitioner Women's Health
DX: Z34.83 Encounter for supervision of other normal pregnancy, third trimester (principal); Z36.85 Encounter for antenatal screening for Streptococcus B
CPT/HCPCS: 36415; 85027; 87081; 87624; 88175; G0145

== ENCOUNTER 2023-03-08 10:35 | Inpatient (IN) | payer OTHER, SELFPAY ==
[2023-03-08] VITALS (147 sets, daily range): BP systolic 109–202; BP diastolic 54–90; PULSE 50–156; RESP 12–18; TEMP 36.1–36.8; O2SAT 80–100; BMI 63.7
[2023-03-08 09:42] LABS: Hematocrit 34.1 % (37-47); Hemoglobin 10.9 g/dL (12.0-15.0); Mean Corpuscular Hgb 28.1 pg (27.0-32.0); Mean Corpuscular Volume 87.9 fL (81-99); Mean Platelet Vol. 11.4 fl (6.2-12.0); Platelet Count 283 K/mm3 (150-450); RBC Distribution Width CV 14.5 % (11.6-14.6); RBC Distribution Width SD 46.6 fl (35.1-43.9); Red Blood Count 3.88 M/mm3 (4.2-5.4); White Blood Count 12.5 K/mm3 (4.4-11.0)
[2023-03-08 10:06] LABS: AST(SGOT) 13 U/L (15-37); Alanine Aminotransfer ALT/SGPT 10 U/L (13-56); Creatinine, Serum 0.66 mg/dL (0.55-1.02); EST Glomerular Filtration Rate 107 mL/min (>60); Est Glom Filt Rate - Afr Amer 130 mL/min (>60); Estimated Creatinine Clearance 101.76 ml/min; LDH 203 U/L (84-246); Uric Acid 3.5 mg/dL (2.6-6.0)
[2023-03-08 10:25] LABS: Syphilis Antibodies Non-reactive
[2023-03-08] MEDS: 0.9% Saline Lock 10 ML Syringe IV (11:55)
[2023-03-08] MEDS: miSOPROStol 25 MCG TABLET VAGINAL ×2 (11:57→17:33)
[2023-03-08] MEDS: Lactated Ringers 1,000 ML 25 ML IV (13:50)
[2023-03-08] MEDS: Magnesium Sulfate 4gm/100mL 4 GM/100 ML IV.SOLN. IV (14:04)
[2023-03-08] MEDS: Magnesium Sulfate 4gm/100mL 2 GM/50 ML IV.SOLN. IV (14:22)
[2023-03-08] MEDS: Magnesium Sulfate 20 GM/500 ML BAG IV (14:34)
--- NOTE | 2023-03-08 15:12 | HP.PCM.OB_ITS ---
History and Physical Date of Admission: 03/08/23 Complaint: Induction of labor History present illness: 37-year-old G3, P1 at 37 weeks and 1 day with IDRIS 03/28/2023 arrived for induction of labor with at that time Esau without severe features. Arrived to labor and delivery with headache just prior to taking blood pressure medication after taking blood pressure medication labetalol 400 mg orally headache resolved. Denies visual changes, chest pain, shortness of breath, nausea vomit, right upper quadrant pain. Patient states good movement. is complicated now by Esau with severe features based on severe range blood pressures, BMI 63, AMA Obstetric history: G1: 39-week female 7 pounds 9 ounces G2: SAB G3: Current Past medical history: Chronic hypertension Medications: Labetalol 600 mg twice daily, vitamin, aspirin Past surgical history: D&C Allergies: No known drug allergies Social history: Denies smoking, alcohol use, drug use Family history: Denies history DVT or PE Review of systems: Besides above pertinent positives a full review of systems was performed and found to be negative Physical exam: Vitals: Blood pressure 136/69 pulse 56 SPO2 97% on room air General: Normal-appearing no acute distress HEENT: Normocephalic/atraumatic no cervical of adenopathy Cardiac/respiratory: No use of accessory muscles, nonlabored breathing Abdomen: Soft, nontender, obese Pelvic exam: Cervical exam 1/50/-3. AROM clear fluid. FSE placed Extremities: No peripheral edema normal peripheral pulses Psych: Normal affect normal demeanor nonpressured speech Labs: White blood cell count 12.5 hemoglobin 10.9 hematocrit 34.1% platelets 283. Creatinine 0.66 AST 13 ALT 10 LDH 203. RPR nonreactive. Blood type a positive antibody negative Assessment and plan: Patient originally arrived for induction of labor with Esau without severe features but with no staffing to perform induction arrived for NST, then with elevated blood pressures nonsevere range them with one-time severe range blood pressure. Reviewed blood pressures with nursing and given orders for help labs along with 2 peripheral IV lines to be placed and discussed continuously monitoring baby, given order to nursing for patient to take at home Labetalol 600mg PO now. Called back by nursing with persistent severe range blood pressu res but just prior to giving order for IV antihypertensive medication patient with nonsevere range blood pressure. Given orders to nursing for magnesium 6 g bolus at 2 g an hour and will continue to monitor blood pressures and if severe range will give IV antihypertensive medications. Nursing states understanding and agrees with Plan. Patient seen and examined. 37-year-old G3, P1 at 37 weeks and 1 day now diagnosed with Esau with severe features based on severe range blood pressures. Magnesium started blood pressures nonsevere range and patient now asymptomatic now denies headache. We will continue magnesium every 6 hours magnesium checks. Educated patient on diagnosis of now Esau with severe features and discussed magnesium treatment plan and reasoning. Patient and partner state understanding. Discussed induction process with Cytotec 25 mcg vaginally every 4 hours. Patient and partner state understanding. We will continue induction process and continue to monitor blood pressures. Reviewed with patient and nursing patient on her own decided to take labetalol 400 mg p.o. when ordered earlier this morning to take labetalol 600 mg p.o., patient admits that she decided to change the dose and confirm she took labetalol 400 mg p.o. this morning. We will continue to monitor blood pressures reviewed medications and blood pressures with nursing. Nursing and patient with in ability to continuously monitor heart tones of baby via external monitoring after multiple attempts for multiple hours, patient exhausted from no position changes. Educated patient on placement of FSE and AROM wrist benefits alternatives. Patient states understanding wish to proceed. AROM clear fluid. FSE placed
[2023-03-08] MEDS: LACTATED RINGERS 500 ML 999 ML IV (20:10)
[2023-03-08] MEDS: Labetalol 200 MG Tablet 600 MG PO (21:13)
[2023-03-08] MEDS: fentaNYL-bupivacaine (epidural) 100 ML BAG EPIDURAL ×2 (22:03)
[2023-03-08] MEDS: Oxytocin 15 Units/NS 250ml 15 UNITS/250 ML IV.SOLN 2 UNITS IV (22:24)
[2023-03-08 22:48] LABS: Magnesium 4.8 mg/dL (1.6-2.6)
[2023-03-09] VITALS (114 sets, daily range): BP systolic 80–146; BP diastolic 42–80; PULSE 48–70; RESP 15–20; TEMP 36.2–36.8; O2SAT 91–100
[2023-03-09] MEDS: Magnesium Sulfate 20 GM/500 ML BAG IV ×2 (00:11→10:04)
[2023-03-09] MEDS: fentaNYL-bupivacaine (epidural) 100 ML BAG EPIDURAL (02:11)
[2023-03-09 03:43] LABS: Magnesium 5.4 mg/dL (1.6-2.6)
[2023-03-09] MEDS: Amnioinfusion- 0.9% NS 1,000 ML IV.SOLN. 1 ML INTRA-UTER (03:59)
[2023-03-09] MEDS: Terbutaline 1 MG/ML Vial 0.25 MG SC (04:39)
--- NOTE | 2023-03-09 04:57 | PN.OBGYN_ITS ---
Subjective Subjective Patient comfortable with epidural. Objective Data Objective Data Vital Signs: Vital Signs Temp Pulse Resp BP Pulse Ox O2 Del Method 98.1 F 55 L 18 137/68 H 100 Room Air 03/09/23 04:00 03/09/23 04:21 03/09/23 04:00 03/09/23 04:21 03/09/23 04:17 03/09/23 03:18 Oxygen Delivery Method Room Air Weight: 168.4 kg Body Mass Index (BMI) 63.7 Intake & Output: Intake and Output for Last 24 Hours 03/07/23 03/08/23 03/09/23 23:59 23:59 23:59 Intake Total 950 / 1025 657.83 / 657.83 Output Total 0 / 250 250 / 250 Balance 950 / 775 407.83 / 407.83 Lab / Micro Data Attestation: I reviewed the patient's lab results. 03/08/23 09:10 03/08/23 09:10 Labs: Laboratory Results - last 24 hr 03/08/23 09:10: WBC 12.5 H, RBC 3.88 L, Hgb 10.9 L, Hct 34.1 L, MCV 87.9, MCH 28.1, MCHC 32.0, RDW Std Deviation 46.6 H, RDW Coeff of Nacho 14.5, Plt Count 283, MPV 11.4, Creatinine 0.66, Estim Creat Clear Calc 101.76, Est GFR (MDRD) Af Amer 130, Est GFR (MDRD) Non-Af 107, Uric Acid 3.5, AST 13 L, ALT 10 L, Lactate Dehydrogenase 203, Syphilis Total Ab Non-reactive, Blood Type A POSITIVE, Antibody Screen NEGATIVE 03/08/23 22:25: Magnesium 4.8 H 03/09/23 02:30: Magnesium 5.4 H* Physical Exam Const alert, oriented x3 and no apparent distress Resp normal respiratory effort GI soft to palpation and non-tender GI Narrative: obese Inspection: gravid Narrative: /-3 Neuro no focal motor deficits and no sensory deficits noted NST FHR Rate Baby A Baseline: 115 Variability:: Moderate Accelerations:: None Decelerations:: Variable FHR Category:: Category II Uterine Activity:: q5 min Assessment & Plan (1) Chronic hypertension with superimposed pre-eclampsia: PLAN: 37-year-old at 37/2 weeks, IDRIS 03/28/2023 with persistent category 2 heart rate tracing. Attempted positional changes, fluid boluses, amnioinfusion, oxygen, Pitocin was turned off, patient also received terbutaline. There is improvement with variables, however they are still pe rsistent. Minimal reaction to scalp stimulation. Cervix 4 cm, remote from delivery. Discussed section. All risk, benefits, alternatives were discussed with the patient. Risk include but not limited to: Risk of bleeding to the point of transfusion, infection, injury to surrounding tissue including bowel/bladder potentially requiring prolonged Domingo catheter use, VTE, ICU admission. Patient aware and consented. 3 g Ancef and 500 mg azithromycin preoperatively. Proceed in urgent fashion. We will plan for 24 hours of antibiotics for prophylaxis. Lovenox 40 mg twice daily for prophylaxis, will discharge home on 2 weeks of Lovenox. (2) Chronic hypertension: (3) Class 3 obesity:
[2023-03-09] MEDS: Acetaminophen 500 MG Tablet PO (05:02)
[2023-03-09] MEDS: Sodium Citrate/Citric Acid 30 ML UDC PO (05:03)
[2023-03-09] MEDS: Ondansetron 4 MG/2 ML Vial IV (05:42)
--- NOTE | 2023-03-09 06:22 | EX.PCM.OBRPT ---
Maternal Data Information Final IDRIS: 03/28/23 Final IDRIS Source: LMP Details Operative Information Date of Procedure: 03/09/23 Pre-Operative Diagnosis: Minor intrauterine , superimposed preeclampsia with severe features, persistent category 2 heart rate tracing Post-Operative Diagnosis: Minor intrauterine , superimposed preeclampsia with severe features, persistent category 2 heart rate tracing Indications Narrative: 37-year-old G3, P1 at 37/2 weeks, IDRIS 03/28/2023 by LMP, admitted for induction of labor for superimposed preeclampsia with severe features. Patient had persistent category 2 heart tracing unresolved with measures. Proceeded in an urgent, nonemergent fashion for primary section. All risk, benefits, alternatives were discussed with the patient. Risk include but are not limited to: Risk of bleeding to the point of transfusion, infection, injury to surrounding tissue including bowel/bladder potentially requiring prolonged Domingo catheter use, VTE, ICU admission. Patient aware and consented verbally. All questions were answered. Classification: BRIANNE Procedure Type: low transverse Type of Anesthesia: Epidural Antibiotic Given: Ancef 3 grams IV x1 and Zithromax 500 mg/5 mL X1 Estimated Blood Loss: 700cc Fluids Replaced: 950cc Findings Description of Procedure: Procedure: Patient was taken to the operating room, epidural was dosed. Patient placed in supine position with a left lateral tilt. Prepped and draped in the usual sterile fashion. Pfannenstiel skin incision made with scalpel and carried down through subcutaneous tissue. Large amount of subcutaneous tissue noted. Fascia nicked on either side of the midline and extended bilaterally using Alexandre scissors. Darshan clamps used to grasp superior fascial edge which was tented up and underlying rectus muscles were dissected off using Bovie and blunt dissection. Darshan clamps moved to the inferior fascial edge which was tented up and underlying rectus muscles were dissected off in a similar fashion. Rectus muscle superiorly and peritoneum grasped with hemostats. Incised with Metzenbaum scissors. Extended bluntly. Ian retractor placed. Due to body habitus and location of the uterus/uterine exposure, high transverse uterine incision made with scalpel. Extended bluntly and sharply using bandage scissors at the left and right hysterotomy angles. Hand placed into the uterine cavity and head elevated to the level of the hysterotomy. Head delivered followed by body with the assistance of gentle fundal pressure. No nuchal cord. Cord clamped and cut. Baby handed to nursing. Manual extraction of the placenta. Uterus cleared of all clots with a dry lap. Hysterotomy closed with a running stitch followed by second vertical imbricating stitch. Hemostatic with Bovie. Nirav placed. Ian retractor removed. Peritoneum closed with a running stitch. Fascia closed with a running looped PDS suture. Peritoneum irrigated with Irrisept. Subcutaneous tissue reapproximated with suture in several layers. Skin closing with a running subcuticular stitch. At the end of the procedure all needle, lap, sponge counts were correct. UOP: 100cc clear yellow urine Plan for Ancef for 24 hours for wound prophylaxis. Lovenox 40 mg twice daily, to be continued on home-going for 2 weeks. A Gender: Female (1 minute): 8 (5 minute): 9 Complications Complications: None
[2023-03-09] MEDS: Oxytocin 15 Units/NS 250ml 15 UNITS/250 ML IV.SOLN 83 UNITS IV (06:53)
[2023-03-09] MEDS: Ketorolac 30 MG/ML Syringe IV (08:16)
[2023-03-09] MEDS: HYDROmorphone 1 MG/ML Syringe IV ×2 (08:17→16:57)
[2023-03-09 09:30] LABS: Magnesium 5.5 mg/dL (1.6-2.6)
[2023-03-09] MEDS: Senna/Docusate Sodium 1 Tablet PO (10:06)
[2023-03-09] MEDS: Lactated Ringers 1,000 ML 50 ML IV (10:09)
[2023-03-09] MEDS: Labetalol 200 MG Tablet 600 MG PO (10:21)
[2023-03-09] MEDS: Acetaminophen 500 MG Tablet 1000 MG PO ×3 (11:54→23:58)
[2023-03-09] MEDS: LACTATED RINGERS 500 ML 999 ML IV ×2 (12:03→21:01)
[2023-03-09] MEDS: Cefazolin 2 GM in 0.9% Normal Saline 100 ML IV ×2 (12:49→21:12)
[2023-03-09] MEDS: LACTATED RINGERS 200 ML 400 ML IV (15:00)
[2023-03-09] MEDS: 0.9% Saline Lock 10 ML Syringe IV (16:57)
[2023-03-09] MEDS: Enoxaparin 40 MG/0.4 ML Syringe SC (18:03)
[2023-03-09] MEDS: Lactated Ringers 1,000 ML 100 ML IV (21:01)
[2023-03-09 21:35] LABS: Anion Gap 6 (5-15); BUN 9 mg/dL (7-18); BUN/Creat Ratio 10.7 RATIO (10-20); Calcium,Total 6.9 mg/dL (8.5-10.1); Chloride 104 mmol/L (98-107); Creatinine, Serum 0.84 mg/dL (0.55-1.02); EST Glomerular Filtration Rate 82 mL/min (>60); Est Glom Filt Rate - Afr Amer 99 mL/min (>60); Estimated Creatinine Clearance 79.95 ml/min; Glucose 116 mg/dL (74-106); Potassium 3.9 mmol/L (3.5-5.1); Sodium Level 133 mmol/L (136-145)
[2023-03-10] VITALS (9 sets, daily range): BP systolic 106–139; BP diastolic 55–61; PULSE 63–65; RESP 16–18; TEMP 36.3–36.8; O2SAT 95–96
[2023-03-10] MEDS: HYDROmorphone 1 MG/ML Syringe IV (02:46)
[2023-03-10] MEDS: Cefazolin 2 GM in 0.9% Normal Saline 100 ML IV (04:50)
[2023-03-10] MEDS: Ketorolac 30 MG/ML Syringe IV (04:55)
[2023-03-10] MEDS: 0.9% Saline Lock 10 ML Syringe IV ×2 (04:56→17:23)
[2023-03-10 05:52] LABS: Hemoglobin 10.3 g/dL (12.0-15.0); Mean Corp Hgb Conc 32.2 g/dL (32-36); Mean Corpuscular Hgb 28.4 pg (27.0-32.0); Mean Corpuscular Volume 88.2 fL (81-99); Mean Platelet Vol. 11.1 fl (6.2-12.0); Platelet Count 239 K/mm3 (150-450); RBC Distribution Width CV 14.6 % (11.6-14.6); RBC Distribution Width SD 47.6 fl (35.1-43.9); Red Blood Count 3.63 M/mm3 (4.2-5.4); White Blood Count 15.6 K/mm3 (4.4-11.0)
[2023-03-10] MEDS: Enoxaparin 40 MG/0.4 ML Syringe SC ×2 (06:01→19:18)
[2023-03-10] MEDS: Acetaminophen 500 MG Tablet 1000 MG PO ×4 (06:01→23:45)
[2023-03-10 06:32] LABS: ALB/GLOB Ratio 0.6 RATIO (0.9-2.4); AST(SGOT) 38 U/L (15-37); Alanine Aminotransfer ALT/SGPT 15 U/L (13-56); Albumin, Serum 2.2 g/dL (3.2-5.0); Alkaline Phosphatase 81 U/L (45-117); Anion Gap 5 (5-15); BUN 9 mg/dL (7-18); BUN/Creat Ratio 11.1 RATIO (10-20); Calcium,Total 7.4 mg/dL (8.5-10.1); Chloride 103 mmol/L (98-107); Creatinine, Serum 0.81 mg/dL (0.55-1.02); EST Glomerular Filtration Rate 84 mL/min (>60); Est Glom Filt Rate - Afr Amer 102 mL/min (>60); Estimated Creatinine Clearance 82.91 ml/min; Globulin 3.8 g/dL (2.2-4.2); Glucose 87 mg/dL (74-106); LDH 265 U/L (84-246); Potassium 4.1 mmol/L (3.5-5.1); Sodium Level 132 mmol/L (136-145)
--- NOTE | 2023-03-10 09:36 | PCM.PN.OB ---
Subjective Subjective No overnight complaints. Denies headache, vision changes, chest pain, shortness of breath, nausea vomit, right upper quadrant pain. Patient now feels much improved denies dizziness or weakness Objective Data Objective Data Vital Signs: Vital Signs Temp Pulse Resp BP Pulse Ox O2 Del Method 97.3 F L 65 16 139/61 H 96 Room Air 03/10/23 08:31 03/10/23 08:31 03/10/23 08:31 03/10/23 08:31 03/10/23 08:31 03/10/23 08:31 Oxygen Delivery Method Room Air Weight: 371 lb 4.135 oz Body Mass Index (BMI) 63.7 Intake & Output: Intake and Output for Last 24 Hours 03/08/23 03/09/23 03/10/23 23:59 23:59 23:59 Intake Total 950 / 1025 5604.83 / 5604.83 1096.67 / 1096.67 Output Total 0 / 250 2110 / 2110 425 / 425 Balance 950 / 775 3494.83 / 3494.83 671.67 / 671.67 Lab / Micro Data 03/10/23 05:35 03/10/23 05:35 Labs: Laboratory Results - last 24 hr 03/09/23 21:20: Sodium 133 L, Potassium 3.9, Chloride 104, Carbon Dioxide 23.0, Anion Gap 6, BUN 9, Creatinine 0.84, Estim Creat Clear Calc 79.95, Est GFR (MDRD) Af Amer 99, Est GFR (MDRD) Non-Af 82, BUN/Creatinine Ratio 10.7, Glucose 116 H, Calcium 6.9 L 03/10/23 05:35: WBC 15.6 H, RBC 3.63 L, Hgb 10.3 L, Hct 32.0 L, MCV 88.2, MCH 28.4, MCHC 32.2, RDW Std Deviation 47.6 H, RDW Coeff of Nacho 14.6, Plt Count 239, MPV 11.1, Sodium 132 L, Potassium 4.1, Chloride 103, Carbon Dioxide 24.0, Anion Gap 5, BUN 9, Creatinine 0.81, Estim Creat Clear Calc 82.91, Est GFR (MDRD) Af Amer 102, Est GFR (MDRD) Non-Af 84, BUN/Creatinine Ratio 11.1, Glucose 87, Calcium 7.4 L, Total Bilirubin 0.50, AST 38 H, ALT 15, Alkaline Phosphatase 81, Lactate Dehydrogenase 265 H, Total Protein 6.0 L, Albumin 2.2 L, Globulin 3.8, Albumin/Globulin Ratio 0.6 L Physical Exam Const alert, oriented x3, no apparent distress, average body habitus, healthy appearing and well nourished HEENT normocephalic and moist oral mucous membranes Eyes PERRL Neck full ROM Chest inspection of chest normal and palpation of chest normal Resp normal respiratory effort, no retractions and no use of accessory muscles Cardio regular rate, regular rhythm, S1 normal heart sound, S2 normal heart sound, no murmurs, no rub and no gallops GI GI Narrative: Soft, nontender, bandage clean dry and intact Extremity full ROM Neuro moves all extremities and no focal motor deficits Psych mental status grossly normal, affect normal, speech normal and activity/motor behavior normal Assessment & Plan (1) delivery delivered: PLAN: Postop day 1 status post primary section for nonreassuring heart tones. Breast-feeding. Pain well controlled. Esau with severe features based on severe range blood pressures attempted yesterday to continue magnesium 24 hours after delivery but after patient was given labetalol 600 mg p.o. yesterday morning patient with hypotension and magnesium was turned off to help improve symptoms and hypotension initially given 300 cc bolus of LR trying to limit fluid overload but improved hypotension later given another 200 cc bolus of LR. Magnesium was attempted to be turned back on but patient became symptomatic with dizziness and had persistent hypotension given order to hold magnesium yesterday. Patient initially with low urine output after fluid boluses with adequate urine output. We will continue to hold labetalol 600 mg twice daily the patient was on prior to delivery. At this point 24 hours after delivery will hold magnesium and unless needed in the future. Repeat hellp labs tomorrow. We will continue to monitor blood pressures, educated patient on plan for prolonged monitoring of blood pressures and symptoms. Patient stated understanding and agreed with plan
[2023-03-10] MEDS: Ibuprofen 600 MG Tablet PO ×3 (11:27→22:48)
[2023-03-10] MEDS: Senna/Docusate Sodium 1 Tablet PO (11:28)
[2023-03-11] VITALS (11 sets, daily range): BP systolic 112–135; BP diastolic 56–89; PULSE 60–76; RESP 14–18; TEMP 36.3–36.7; O2SAT 95–97
[2023-03-11] MEDS: Ibuprofen 600 MG Tablet PO ×4 (05:00→23:41)
[2023-03-11] MEDS: Enoxaparin 40 MG/0.4 ML Syringe SC ×2 (06:03→18:09)
[2023-03-11] MEDS: Acetaminophen 500 MG Tablet 1000 MG PO ×4 (06:04→23:41)
[2023-03-11 07:11] LABS: ALB/GLOB Ratio 0.5 RATIO (0.9-2.4); AST(SGOT) 44 U/L (15-37); Alanine Aminotransfer ALT/SGPT 15 U/L (13-56); Albumin, Serum 2.2 g/dL (3.2-5.0); Alkaline Phosphatase 85 U/L (45-117); Anion Gap 7 (5-15); BUN 13 mg/dL (7-18); BUN/Creat Ratio 15.6 RATIO (10-20); Calcium,Total 8.4 mg/dL (8.5-10.1); Chloride 105 mmol/L (98-107); Creatinine, Serum 0.84 mg/dL (0.55-1.02); EST Glomerular Filtration Rate 82 mL/min (>60); Est Glom Filt Rate - Afr Amer 99 mL/min (>60); Estimated Creatinine Clearance 79.95 ml/min; Globulin 4.1 g/dL (2.2-4.2); Glucose 84 mg/dL (74-106); Potassium 3.8 mmol/L (3.5-5.1); Protein, Total 6.3 g/dL (6.4-8.2); Sodium Level 135 mmol/L (136-145)
--- NOTE | 2023-03-11 07:36 | PCM.PN.OB ---
Subjective Subjective Patient doing well. Pain controlled. Lochia minimal. No headache or vision changes, chest pain or shortness of breath, nausea or vomiting. Objective Data Objective Data Vital Signs: Vital Signs Temp Pulse Resp BP Pulse Ox O2 Del Method 98.3 F 60 18 112/56 L 97 Room Air 03/10/23 20:23 03/11/23 02:02 03/11/23 02:01 03/11/23 02:02 03/11/23 02:02 03/11/23 02:01 Oxygen Delivery Method Room Air Weight: 168.4 kg Body Mass Index (BMI) 63.7 Intake & Output: Intake and Output for Last 24 Hours 03/09/23 03/10/23 03/11/23 23:59 23:59 23:59 Intake Total 5604.83 / 5604.83 1466.67 / 1466.67 Output Total 2110 / 2110 1025 / 1025 Balance 3494.83 / 3494.83 441.67 / 441.67 Lab / Micro Data Attestation: I reviewed the patient's lab results. 03/10/23 05:35 03/11/23 06:10 Labs: Laboratory Results - last 24 hr 03/11/23 06:10: Sodium 135 L, Potassium 3.8, Chloride 105, Carbon Dioxide 23.0, Anion Gap 7, BUN 13, Creatinine 0.84, Estim Creat Clear Calc 79.95, Est GFR (MDRD) Af Amer 99, Est GFR (MDRD) Non-Af 82, BUN/Creatinine Ratio 15.6, Glucose 84, Calcium 8.4 L, Total Bilirubin 0.40, AST 44 H, ALT 15, Alkaline Phosphatase 85, Total Protein 6.3 L, Albumin 2.2 L, Globulin 4.1, Albumin/Globulin Ratio 0.5 L Physical Exam Const alert, oriented x3 and no apparent distress HEENT normocephalic Head and Scalp: atraumatic Neck full ROM Resp normal respiratory effort Cardio regular rate GI normal to inspection, nondistended, normoactive bowel sounds GI Narrative: Uterus 2 cm below umbilicus, dressing clean and dry. Lower abdomen slightly edematous. Back/Spine normal ROM Extremity normal to inspection Extremity Narrative: Minimal pedal edema Neuro no focal motor deficits and no sensory deficits noted Psych mental status grossly normal and affect normal Assessment & Plan (1) delivery delivered: PLAN: Postop day 2 status post primary section. Complicated by superimposed preeclampsia with severe features. Patient received magnesium, stopped prior to 24 hours due to severe hypotension. Labetalol has been held since the morning of 03/09/2023. Blood pressures are now higher, however are not in the hypertensive range. We will continue to monitor closely. Blood pressures had been labile in labor and she was on labetalol prior to admission. CMP today with stable elevated AST. Due to diagnosis of Esau with severe features and lability of blood pressures, recommend discharge on postop day 3 (03/12/2023). Had a long discussion with the patient and her partner about this. They expressed understanding. Reviewed plan of care with bedside RN. (2) Other acute postprocedural pain: (3) Class 3 obesity: (4) Chronic hypertension with superimposed pre-eclampsia:
--- NOTE | 2023-03-11 07:53 | NURSING ---
0604: Patient educated continuously throughout the night on feeding baby. Per patient she attempted two feeds between [id number] and said she was too tired to eat. This RN reiterated the importance of feeding baby Q2-3 hours with a goal of 20 minutes at breast and to top baby off with formula if she still is rooting. When RN suggested mother try to put baby back to breast if still showing hunger cues patient stated she just fed for 5-10 minutes. Patient educated and reinforced on feeding plan and cluster feeding.
[2023-03-11] MEDS: Senna/Docusate Sodium 1 Tablet PO (09:30)
[2023-03-11] MEDS: 0.9% Saline Lock 10 ML Syringe IV (12:36)
[2023-03-12 02:21] VITALS: O2SAT 97
[2023-03-12 02:22] VITALS: BP 128/70; PULSE 64
[2023-03-12 02:28] VITALS: BP 128/70; PULSE 64; RESP 16; TEMP 36.9; O2SAT 97
[2023-03-12] MEDS: Acetaminophen 500 MG Tablet 1000 MG PO (05:30)
[2023-03-12] MEDS: Enoxaparin 40 MG/0.4 ML Syringe SC (05:30)
[2023-03-12] MEDS: Ibuprofen 600 MG Tablet PO (05:31)
[2023-03-12 06:50] LABS: ALB/GLOB Ratio 0.6 RATIO (0.9-2.4); AST(SGOT) 35 U/L (15-37); Alanine Aminotransfer ALT/SGPT 19 U/L (13-56); Albumin, Serum 2.3 g/dL (3.2-5.0); Alkaline Phosphatase 102 U/L (45-117); Anion Gap 6 (5-15); BUN 15 mg/dL (7-18); BUN/Creat Ratio 22.5 RATIO (10-20); Calcium,Total 8.7 mg/dL (8.5-10.1); Chloride 108 mmol/L (98-107); Creatinine, Serum 0.67 mg/dL (0.55-1.02); EST Glomerular Filtration Rate 106 mL/min (>60); Est Glom Filt Rate - Afr Amer 129 mL/min (>60); Estimated Creatinine Clearance 100.24 ml/min; Glucose 84 mg/dL (74-106); Protein, Total 6.3 g/dL (6.4-8.2); Sodium Level 138 mmol/L (136-145)
--- NOTE | 2023-03-12 07:39 | PCM.PN.OB ---
Subjective Subjective Feeling well. Pain controlled. Lochia minimal. Objective Data Objective Data Vital Signs: Vital Signs Temp Pulse Resp BP Pulse Ox O2 Del Method 98.4 F 64 16 128/70 H 97 Room Air 03/12/23 02:28 03/12/23 02:28 03/12/23 02:28 03/12/23 02:28 03/12/23 02:28 03/12/23 02:28 Oxygen Delivery Method Room Air Weight: 168.4 kg Body Mass Index (BMI) 63.7 Intake & Output: Intake and Output for Last 24 Hours 03/10/23 03/11/23 03/12/23 23:59 23:59 23:59 Intake Total 1466.67 / 1466.67 Output Total 1025 / 1025 Balance 441.67 / 441.67 Lab / Micro Data Attestation: I reviewed the patient's lab results. 03/10/23 05:35 03/12/23 05:50 Labs: Laboratory Results - last 24 hr 03/12/23 05:50: Sodium 138, Potassium 4.0, Chloride 108 H, Carbon Dioxide 24.0, Anion Gap 6, BUN 15, Creatinine 0.67, Estim Creat Clear Calc 100.24, Est GFR (MDRD) Af Amer 129, Est GFR (MDRD) Non-Af 106, BUN/Creatinine Ratio 22.5 H, Glucose 84, Calcium 8.7, Total Bilirubin 0.30, AST 35, ALT 19, Alkaline Phosphatase 102, Total Protein 6.3 L, Albumin 2.3 L, Globulin 4.0, Albumin/Globulin Ratio 0.6 L Physical Exam Const alert, oriented x3 and no apparent distress HEENT normocephalic Head and Scalp: atraumatic Neck full ROM Resp normal respiratory effort Cardio regular rate GI normal to inspection, nondistended, normoactive bowel sounds GI Narrative: Uterus 2 cm below umbilicus, dressing clean and dry. Edema lower abdomen unchanged from yesterday . Back/Spine normal ROM Extremity normal to inspection Extremity Narrative: Minimal pedal edema Neuro no focal motor deficits and no sensory deficits noted Psych mental status grossly normal and affect normal Assessment & Plan (1) delivery delivered: PLAN: Postop day 3 status post primary section. Complicated by superimposed preeclampsia with severe features. Blood pressures have steadily increased, however are still within the normal limits. We will continue to hold labetalol. Patient instructed to take blood pressures at minimum 3 times daily (morning, midday, evening). Patient to report blood pressures greater than 140/90s, in order to be able to restart medication. Office will call her on Monday and she will have a follow-up blood pressure check on Monday. Discussed postoperative wound care and warning signs of infection. Discharge home today. (2) Other acute postprocedural pain: (3) Class 3 obesity: (4) Chronic hypertension with superimposed pre-eclampsia:
--- NOTE | 2023-03-12 07:43 | PCM.DC ---
Discharge Instructions Diet Discharge Diet: No restrictions Activity Discharge Activity: Return to Normal Activity and May Shower May resume sexual activity in: 4-6 weeks Weight Bearing Status: Weight bearing as tolerated Lifting Restrictions: No greater than 25 pounds Dressing / Incision Call your doctor if your incision/area has: Continuous Slow Oozing, Increased Redness and Swelling at the incision site Call your doctor if you observe: Fever of 101 or Higher, Change in Color, Inability to urinate, Using more than 1 pad per hour, Shortness of breath, Dizziness, Swelling in the ankles, Chest pain and Calf discomfort Remove Dressing in: 1 week Cleanse incision/area with: Soap & Water and Keep Dressing Clean & Dry Follow Up Care Please Follow Up With: Marixa Thomas DO When: Saturday 03/17 blood pressure check with nurse, 2-week post operative visit and 6-week visit Test Results: Test results from this visit will be discussed in further detail at your follow-up appointment, if applicable. Discharge Plan Admission Admit Date/Time: 03/08/23 10:35 Primary Reason for Your Visit: section Attending Provider: Marixa Thomas Primary Care Provider: Lolita Laguna NP Discharge Orders/Prescriptions Prescriptions: New oxycodone 5 mg tablet 5 mg PO Q6H PRN (Reason: pain (scale score 7-10)) 4 Days Qty: 14 0RF enoxaparin [Lovenox] 40 mg/0.4 mL syringe 40 mg subcut Q12H 14 Days Qty: 11.2 0RF Discontinued labetalol 200 mg tablet 200 mg PO BID Patient Comments: Patient states taking 3 times per day Rx Instructions: TID Referrals / Follow Up: Loltia Laguna NP, [facility] [Primary Care Provider] - Disposition Disposition (needs filled in before D/C Order can be placed): Home, Self Care
--- NOTE | 2023-03-12 07:45 | PCM.DC.SUM ---
Providers Date of Admission: 03/08/23 Primary Care Physician: HARSH Ashby Reason For Visit: C SECTION Diagnosis Discharge Diagnosis (1) delivery delivered: Status: Acute Code(s): O82 - Encounter for delivery without indication Plan: Postop day 3 status post primary section. Complicated by superimposed preeclampsia with severe features. Blood pressures have steadily increased, however are still within the normal limits. We will continue to hold labetalol. Patient instructed to take blood pressures at minimum 3 times daily (morning, midday, evening). Patient to report blood pressures greater than 140/90s, in order to be able to restart medication. Office will call her on Monday and she will have a follow-up blood pressure check on Monday. Discussed postoperative wound care and warning signs of infection. Discharge home today. (2) Other acute postprocedural pain: Status: Acute Code(s): G89.18 - Other acute postprocedural pain (3) Class 3 obesity: Status: Acute Code(s): E66.01 - Morbid (severe) obesity due to excess calories (4) Chronic hypertension with superimposed pre-eclampsia: Status: Acute Code(s): O11.9 - Pre-existing hypertension with pre-eclampsia, unspecified trimester Medications at Discharge Home Medications enoxaparin 40 mg/0.4 mL subcutaneous syringe (Lovenox) 40 mg (0.4 mL) subcut Q12H 14 days #11.2 mL 03/09/23 oxycodone 5 mg tablet 5 mg PO Q6H PRN pain (scale score 7-10) 4 days #14 tabs 03/09/23 Hospital Course Operations section Summary of Care Provided Hospital Course: Patient admitted for induction of labor for superimposed preeclampsia, blood pressures were elevated in the severe range, she was started on magnesium sulfate. On 03/09/2023 she had section for persistent category 2 heart rate tracing. Blood pressures on postop day 0 became very low, therefore magnesium was stopped. Were unable to restart magnesium due to hypotension. Blood pressures have slowly increased since that time. On postop day 3 patient is stable for discharge. Have not resumed her labetalol. Plans for home blood pressure monitoring in place. Physical Exam Const alert, oriented x3 and no apparent distress HEENT normocephalic Head and Scalp: atraumatic Neck full ROM Resp normal respiratory effort Cardio regular rate GI normal to inspection, nondistended, normoactive bowel sounds GI Narrative: Uterus 2 cm below umbilicus, dressing clean and dry. Edema lower abdomen unchanged from yesterday . Back/Spine normal ROM Extremity normal to inspection Extremity Narrative: Minimal pedal edema Neuro no focal motor deficits and no sensory deficits noted Psych mental status grossly normal and affect normal Weight / BMI Weight Weight: 168.4 kg Body Mass Index (BMI) 63.7 ABG / Lab / Microbiology Data 03/10/23 05:35 03/12/23 05:50 Laboratory: Laboratory Results - last 24 hr 03/12/23 05:50: Sodium 138, Potassium 4.0, Chloride 108 H, Carbon Dioxide 24.0, Anion Gap 6, BUN 15, Creatinine 0.67, Estim Creat Clear Calc 100.24, Est GFR (MDRD) Af Amer 129, Est GFR (MDRD) Non-Af 106, BUN/Creatinine Ratio 22.5 H, Glucose 84, Calcium 8.7, Total Bilirubin 0.30, AST 35, ALT 19, Alkaline Phosphatase 102, Total Protein 6.3 L, Albumin 2.3 L, Globulin 4.0, Albumin/Globulin Ratio 0.6 L D/C Instructions Discharge Diet: No restrictions May resume sexual activity in: 4-6 weeks Weight Bearing Status: Weight bearing as tolerated Call your doctor if your incision/area has: Continuous Slow Oozing, Increased Redness and Swelling at the incision site Call your doctor if you observe: Fever of 101 or Higher, Change in Color, Inability to urinate, Using more than 1 pad per hour, Shortness of breath, Dizziness, Swelling in the ankles, Chest pain and Calf discomfort Cleanse incision/area with: Soap & Water and Keep Dressing Clean & Dry Please Follow Up With: Marixa Thomas DO When: Saturday 03/17 blood pressure check with nurse, 2-week post operative visit and 6-week visit Meaningful Use Info Meaningful Use Diagnoses (Choose all that apply): None applicable Discharge Plan Admission Admit Date/Time: 03/08/23 10:35 Primary Reason for Your Visit: section Attending Provider: Marixa Thomas Primary Care Provider: Lolita Laguna NP Discharge Orders/Prescriptions Prescriptions: New oxycodone 5 mg tablet 5 mg PO Q6H PRN (Reason: pain (scale score 7-10)) 4 Days Qty: 14 0RF enoxaparin [Lovenox] 40 mg/0.4 mL syringe 40 mg subcut Q12H 14 Days Qty: 11.2 0RF Discontinued labetalol 200 mg tablet 200 mg PO BID Patient Comments: Patient states taking 3 times per day Rx Instructions: TID Referrals / Follow Up: Lolita Laguna NP, [employer] [Primary Care Provider] - Disposition Disposition (needs filled in before D/C Order can be placed): Home, Self Care
[2023-03-12 08:00] VITALS: BP 136/65; PULSE 60
[2023-03-12 08:02] VITALS: PULSE 65; O2SAT 98
[2023-03-12 08:05] VITALS: BP 136/65; PULSE 68; RESP 16; TEMP 36.4; O2SAT 98
== END 2023-03-12 09:35 | disposition home or self-care (01) | DRG 788 ==
LOC: WPOUT 10:43 → WP 10:43
PROVIDERS: Admitting Provider Student in an Organized Health Care Education/Training Program; PCP Nurse Practitioner Family; Referring Provider Obstetrics & Gynecology; Visit Provider Student in an Organized Health Care Education/Training Program
DX: O11.4 Pre-existing hypertension with pre-eclampsia, complicating childbirth (principal); O76 Abnormality in fetal heart rate and rhythm complicating labor and delivery; O10.92 Unspecified pre-existing hypertension complicating childbirth; Z3A.37 37 weeks gestation of pregnancy; Z37.0 Single live birth; O9A.22 Injury, poisoning and certain other consequences of external causes complicating childbirth; T44.8X6A Underdosing of centrally-acting and adrenergic-neuron-blocking agents, initial encounter; Z91.128 Patient's intentional underdosing of medication regimen for other reason
CPT/HCPCS: 36415; 59025; 59050; 80048; 80053; 82565; 83615; 83735; 84450; 84460; 84550; 85027; 86780; 86850; 86900; 86901; 99221; 99252; J7030; J7120; A4216; G0378; G0463; J2405

== ENCOUNTER → 2025-02-18 | Outpatient (CLI) | payer OTHER, SELFPAY ==
--- NOTE | 2025-02-18 08:39 | US_ITS ---
PROCEDURE: PELVIC (NON ) 02/18/2025 REASON FOR EXAM: IRREGULAR MENSTRAL BLEEDING TECHNIQUE: Transabdominal pelvic ultrasound utilizing 2D grayscale and color Doppler. COMPARISON: Obstetric pelvic ultrasound 08/25/2022. FINDINGS: The anteverted uterus appears normal in size and smooth in contour, measuring 12.5 x 7.5 x 5.5 cm. No discrete uterine fibroid is seen. No abnormal collection within the uterine cavity. Endometrial stripe complex appears within normal limits measuring up to 1.9 cm in thickness. Small cervical nabothian cysts. The left ovary measures 3.8 x 3.4 x 3 cm, and contains a small simple appearing cyst measuring up to 3 cm in diameter. No specific follow-up is indicated. Blood flow is demonstrated within the left ovary. Right ovary is not identified with certainty on this exam. No adnexal masses seen. No significant free fluid is seen within the pelvis. US/Pelvic (Non ) IMPRESSION: Sonographically unremarkable uterus. Simple 3 cm left ovarian cyst, no specific follow-up indicated. Reading Location: [id number]
[2025-02-18 11:06] LABS: hCG Titer Quant., Serum < 1 mIU/mL (<9 non-preg)
== END | disposition home or self-care (01) ==
PROVIDERS: PCP Nurse Practitioner Family; Referring Provider Nurse Practitioner Family; Visit Provider Nurse Practitioner Family
DX: N92.6 Irregular menstruation, unspecified (principal)
CPT/HCPCS: 36415; 76856; 84702

== ENCOUNTER 2025-05-29 15:48 | Emergency (ER) | payer OTHER, SELFPAY ==
[2025-05-29] VITALS (8 sets, daily range): BP systolic 95–210; BP diastolic 51–111; PULSE 59–80; RESP 16–18; TEMP 36.6; O2SAT 93–100; BMI 65.4
[2025-05-29 17:42] LABS: Hematocrit 31.8 % (37-47); Hemoglobin 9.8 g/dL (12.0-15.0); Immature Granulocytes Count 0.040 X10^3/uL (0.0-0.0); Mean Corp Hgb Conc 30.8 g/dL (32-36); Mean Corpuscular Volume 78.9 fL (81-99); Mean Platelet Vol. 10.3 fl (6.2-12.0); NRBC Flagged by Analyzer 0 % (0-5); Platelet Count 303 K/mm3 (150-450); RBC Distribution Width CV 14.3 % (11.6-14.6); RBC Distribution Width SD 40.8 fl (35.1-43.9); Red Blood Count 4.03 M/mm3 (4.2-5.4); White Blood Count 10.6 K/mm3 (4.4-11.0)
--- NOTE | 2025-05-29 18:18 | EDS_ITS ---
HPI HPI - Female History of Present Illness Chief Complaint: Vag Bleeding Detail of Chief Complaint: Vaginal bleeding for 24 straight days Informant: patient Pain Pain: Negative for Pelvic Pain, Vulvar Pain or Vaginal Pain Bleeding Issue: Positive for Vaginal bleeding and Passing clots; Negative for Passing tissue Onset: Days (24 days) Context: Sudden Onset Timing: Continuous Current Severity: Heavy Maximum Severity: Heavy Associated Symptoms Associated Symptoms: Positive for Irregular Period; Negative for Dysuria, Frequency, Urgency, Hematuria or Missed Period Test: Negative Sexually: Positive for Inactive P: 2 Ab: 0 Narrative Narrative: Patient is a 39-year-old G2, P2 AB 0 white female who presents with vaginal bleeding for the past 24 days. She states she bled for 2 days. Did not bleed for a day and now has blood for 24 straight days. She is using 2-3 tampons/pads per day. She states she is passing clots. She states she is not sexually active. She denies orthostatic symptoms. She denies pain referred to her shoulders. She has history of ovarian cyst. There is no history of endocrine vaginosis. There is no history of PID. She denies urologic symptoms. She is not on Lovenox that was initially listed. She does have history of hypertension and is taking labetalol and furosemide. She has no neurologic symptoms. Prior similar symptoms: No Recent Illness/Hospitalization: No [facility] Medical History delivery delivered Asthma Pre-eclampsia HTN (hypertension) Incomplete miscarriage UTI (urinary tract infection) during Home Medications ?Medication ?Instructions ?Recorded ?Last Taken ?Type cephalexin 500 mg capsule 500 mg PO TID 05/29/25 Unkno wn History furosemide 20 mg tablet 20 mg PO DAILY 05/29/25 Unkn own History labetalol 200 mg tablet 400 mg PO BID 05/29/25 Unkno wn History Allergy/AdvReac Type Severity Reaction Status Date / Time No Known Allergies Allergy Verified 05/29/25 15:50 Family History Mother Cancer possibly ovarian Social History adopted: No household members: spouse number of children: 1 current occupational status: employed current occupation: [employer] pets and animals: Yes (avoid litter box) pets and animals: cat(s) and dog(s) Smoking Status: Never smoker alcohol intake: never substance use type: does not use caffeine: Yes do you feel safe at home: Yes additional social history: Spouse: Jim MERCHANT ED Constitutional Constitutional ED: Denies chills, fever(s) or subjective Eyes Eyes: Denies blurry vision or change in vision Cardiovascular Cardiovascular: Denies chest pain or palpitations Respiratory/Chest Respiratory/Chest: Denies cough, dyspnea or dyspnea on exertion Gastrointestinal Gastrointestinal: Denies abdominal pain, nausea or vomiting Genitourinary Genitourinary ED: Denies dysuria, hematuria or urinary frequency Musculoskeletal Musculoskeletal: Denies arthralgias, myalgias or neck pain Integumentary Denies abscess or rash Neurologic Neurologic: Denies headache(s), paresthesias or weakness Endocrine Endocrinology: Denies heat intolerance or polydipsia Hematologic/Lymphatic Hematologic/Lymphatic: Denies easy bleeding or easy bruising EXAM Physical Exam Const Vital Signs: 05/29/25 15:49 05/29/25 17:19 05/29/25 17:27 Temperature 98 F Temperature Source Oral Pulse Rate 80 Pulse Rate [Lying] 72 Pulse Rate [Sitting (for 1 minute prior to obtaining)] 73 Pulse Rate [Standing (for 1 minute prior to obtaining)] 69 Respiratory Rate 16 Blood Pressure 188/98 H 174/71 H Blood Pressure [Lying] 186/102 H Blood Pressure [Sitting (for 1 minute prior to obtaining)] 205/111 H Blood Pressure [Standing (for 1 minute prior to obtaining)] 210/98 H Blood Pressure Mean 128 105 Blood Pressure Mean [Lying] 130 Blood Pressure Mean [Sitting (for 1 minute prior to obtaining)] 142 Blood Pressure Mean [Standing (for 1 minute prior to obtaining)] 135 Pulse Ox 98 Oxygen Delivery Method Room Air 05/29/25 18:31 05/29/25 18:45 05/29/25 19:00 Temperature Temperature Source Pulse Rate 67 59 L Pulse Rate [Lying] Pulse Rate [Sitting (for 1 minute prior to obtaining)] Pulse Rate [Standing (for 1 minute prior to obtaining)] Respiratory Rate 18 16 Blood Pressure 163/69 H 177/51 H Blood Pressure [Lying] Blood Pressure [Sitting (for 1 minute prior to obtaining)] Blood Pressure [Standing (for 1 minute prior to obtaining)] Blood Pressure Mean 92 87 Blood Pressure Mean [Lying] Blood Pressure Mean [Sitting (for 1 minute prior to obtaining)] Blood Pressure Mean [Standing (for 1 minute prior to obtaining)] Pulse Ox 93 100 Oxygen Delivery Method 05/29/25 21:00 05/29/25 23:00 Temperature Temperature Source Pulse Rate 70 Pulse Rate [Lying] Pulse Rate [Sitting (for 1 minute prior to obtaining)] Pulse Rate [Standing (for 1 minute prior to obtaining)] Respiratory Rate 16 Blood Pressure 181/94 H 95/60 Blood Pressure [Lying] Blood Pressure [Sitting (for 1 minute prior to obtaining)] Blood Pressure [Standing (for 1 minute prior to obtaining)] Blood Pressure Mean 123 71 Blood Pressure Mean [Lying] Blood Pressure Mean [Sitting (for 1 minute prior to obtaining)] Blood Pressure Mean [Standing (for 1 minute prior to obtaining)] Pulse Ox Oxygen Delivery Method Positive well nourished General Appearance ED: NAD; Negative for odor of alcohol detected HEENT Reports moist mucous membranes Eyes PERRL and EOMs intact bilaterally General Eye ED: Negative for pale conjunctiva or scleral icterus Neck no lymphadenopathy and supple Resp normal respiratory effort and clear to auscultation bilaterally Cardio regular rate, regular rhythm, S1 normal heart sound, no murmurs and no JVD GI normal to inspection, nondistended, normoactive bowel sounds, soft to palpation, non-tender, non-distended and no masses GI Narrative: Exam limited due to body habitus, BMI 65.5. Neuro oriented x3 and CN's II-XII intact bilaterally Sensorium / Orientation: alert Psych mental status grossly normal Skin no rashes or lesions noted and no wounds MDM MDM MDM Narrative Medical decision making narrative: Differential diagnosis is dysfunctional bleeding, , missed AB, malignancy. Blood pressure is elevated. Will monitor this. Will obtain CBC to assess H&H and she appears pale. Lab Data Attestation: I reviewed the patient's lab results. Lab results narrative: CBC reveals an H&H of 9.8 and 31.8 with MCV of 78.9 and MCH of 24.3. This is consistent with microcytic anemia due to blood loss. Labs: Laboratory Results - last 24 hr 05/29/25 17:14 WBC 10.6 RBC 4.03 L Hgb 9.8 L Hct 31.8 L MCV 78.9 L MCH 24.3 L MCHC 30.8 L RDW Std Deviation 40.8 RDW Coeff of Nacho 14.3 Plt Count 303 MPV 10.3 Immature Gran % (Auto) 0.400 Neut % (Auto) 65.8 Lymph % (Auto) 21.1 Dent % (Auto) 7.8 Eos % (Auto) 4.3 Baso % (Auto) 0.6 Absolute Neuts (auto) 7.0 Absolute Lymphs (auto) 2.23 Nucleated RBC % 0 Sodium 139 Potassium 3.6 Chloride 102 Carbon Dioxide 25.7 Anion Gap 11 BUN 11 Creatinine 0.84 Estim Creat Clear Calc 146.31 Est GFR (MDRD) Non-Af 91 BUN/Creatinine Ratio 13.5 Glucose 90 Calcium 9.2 Serum , Qual NEGATIVE Radiography Diagnostic Testing: Clinical Impression(s) from Imaging Studies Transvaginal US 05/29/25 20:29 IMPRESSION: 1. Uterus and right ovary appear sonographically within normal limits. 2. Left ovary not identified with certainty on this exam. 3. No adnexal mass or free pelvic fluid. 4. Echogenic granular debris within the bladder; correlate for possible cystitis. Reading Location: [facility] Treatment and Re-Evaluation Narrative: Since patient is have a BLOCK CAPTAIN in the area she was referred to Dr. Rachel Tate who is on-call for PSYCHIATRY ADULT PHYSICIAN no doc. She was not placed on anything for the bleeding since the bleeding is very minimal at this time. Discharge Plan Triage Chief Complaint: Vag Bleeding ED Provider: Chito Jeronimo Dx/Rx/DC Orders Clinical Impression: Abnormal uterine and vaginal bleeding, unspecified, Body mass index (BMI) greater than 50, Hypertension Instructions: ED Dysfunctional Uterine Bleeding Prescriptions: No Action labetalol 200 mg tablet 400 mg PO BID cephalexin 500 mg capsule 500 mg PO TID furosemide 20 mg tablet 20 mg PO DAILY Primary Care Provider: Lolita Laguna NP Referrals: Rachel Tate MD [Med Staff - Active Staff, Obstetrics-Gynecology (OBGYN)] - 5-7 Days Lolita Laguna NP, [employer]ER-[facility] [Primary Care Provider, Family Practice] Print Language: Indonesian Disposition Disposition: Home, Self Care
[2025-05-29 18:36] LABS: Internal QC Validated? YES +Cl - CLEAR BKGD; Pregnancy, Serum, hCG Quali. NEGATIVE Negative; Record Kit Lot#, Serum Preg. 980607
[2025-05-29 18:40] LABS: Anion Gap 11 (5-15); BUN 11 mg/dL (4-19); BUN/Creat Ratio 13.5 RATIO (10-20); Calcium,Total 9.2 mg/dL (7.6-11.0); Carbon Dioxide 25.7 mmol/L (21.0-32.0); Chloride 102 mmol/L (98-108); Estimated Creatinine Clearance 146.31 ml/min (50-250); Glucose 90 mg/dL (70-99); Potassium 3.6 mmol/L (3.3-5.1)
--- NOTE | 2025-05-29 20:29 | US_ITS ---
PROCEDURE: PELVIC ULTRASOUND TRANSVAGINAL NON- 05/29/2025 REASON FOR EXAM: VAGINAL BLEEDING X 24 DAYS TECHNIQUE: Procedure Code: USTVAG Modality: US Procedure: TRANSVAGINAL NON- COMPARISON: Pelvic ultrasound 02/18/2025. FINDINGS: Anteverted uterus appears normal in size and smooth in contour, measuring 11.4 x 7.3 x 5.3 cm. No discrete uterine myoma. Multiple cervical nabothian cysts. No abnormal collection within the uterine cavity. Endometrial stripe complex appears within normal limits measuring up to 2 cm. Right ovary has a normal sonographic appearance measuring 2.7 x 2.6 x 1.8 cm. Blood flow is demonstrated within the right ovary on color Doppler. Left ovary is not identified with certainty on this exam. No adnexal mass or significant free pelvic fluid is seen. Echogenic granular debris seen within the urinary bladder. US/Transvaginal Non- IMPRESSION: 1. Uterus and right ovary appear sonographically within normal limits. 2. Left ovary not identified with certainty on this exam. 3. No adnexal mass or free pelvic fluid. 4. Echogenic granular debris within the bladder; correlate for possible cystiti s. Reading Location: [id number]
[2025-05-30 00:25] VITALS: BP 176/93; PULSE 61; RESP 20; TEMP 36.6; O2SAT 100
[2025-05-30 00:37] VITALS: BP 175/87; PULSE 70; RESP 18; TEMP 36.7; O2SAT 97
== END 2025-05-30 00:38 | disposition home or self-care (01) ==
PROVIDERS: Emergency Provider Emergency Medicine; PCP Nurse Practitioner Family; Visit Provider Emergency Medicine
DX: N93.9 Abnormal uterine and vaginal bleeding, unspecified (principal); I10 Essential (primary) hypertension
CPT/HCPCS: 76830; 80048; 84703; 85025; 99285; A4216